=== PATIENT | male | born 1935 | race Caucasian/White ===

== ENCOUNTER 2018-02-15 17:29 | Inpatient (IN) | payer MEDICARE ==
[~2018-02-15 17:29] MED LIST: Iopamidol 370 76% 100 ML VIAL ONE
[2018-02-15 18:22] LABS: #Eosinphils 0.8 thou/uL (0.0-0.7); #Lymphocytes 0.8 thou/uL (1.20-3.40); #Monocytes 0.6 thou/uL (0.11-0.59); #Neutrophils 5.9 thou/uL (1.40-6.50); %Basophils 0.3 % (0.0-1.0); %Lymphocytes 9.9 % (21.0-51.0); %Monocytes 7.4 % (0.0-10.0); %Neutrophils 72.4 % (42.0-75.0); Hemoglobin 13.5 g/dL (14.0-18.0); Mean Corpuscular HGB CONC 32.9 g/dL (32.0-36.0); Mean Corpuscular Hemoglobin 29.5 pg (27.0-31.0); Mean Corpuscular Volume 89.7 fL (78.0-98.0); Mean Platelet Volume 8.5 fL (7.4-10.4); Platelet Count 154 thou/uL (130-400); RBC Distribution Width 13.3 % (11.5-14.5); Red Blood Cell (RBC) Count 4.59 mill/uL (4.70-6.10); White Blood Cell (WBC) Count 8.2 thou/uL (4.8-10.8)
[2018-02-15 18:30] LABS: INR-International Normal Ratio 1.1; PTT 27.4 SEC (22.9-36.1); Prothrombin Time 14.1 SEC (12.0-14.7)
[2018-02-15 18:44] LABS: ALT (SGPT) 15 U/L (8-55); AST (SGOT) 27 U/L (5-34); Albumin 3.8 g/dL (3.4-4.8); Alkaline Phosphatase 76 U/L (40-150); Anion Gap 12 mmol/L (10-20); BUN (Urea Nitrogen) 21 mg/dL (8.4-25.7); Bilirubin, Total 0.4 mg/dL (0.2-1.2); Calc. Creatinine Clearance 0 mL/min (70-130); Calcium 9.4 mg/dL (7.8-10.44); Carbon Dioxide 27 mmol/L (23-31); Chloride 102 mmol/L (98-107); Estimated GFR-MDRD 61; Globulin 3.4 g/dL (2.4-3.5); Glucose 124 mg/dL (83-110); Lipase 10 U/L (8-78); Potassium 4.7 mmol/L (3.5-5.1); Protein, Total 7.2 g/dL (5.8-8.1); Sodium 136 mmol/L (136-145)
--- NOTE | 2018-02-15 20:35 | CT ---
ABDOMEN AND PELVIS CT SCAN WITH IV CONTRAST: HISTORY: An 83-year-old male with a history of rectal bleeding, a history of Julio's esophagus, and colonic polyps. COMPARISON: 11/19/2016 FINDINGS: Left hemidiaphragm elevation with some pleural and parenchymal changes in the left base. Evidence fo r a large, somewhat poorly circumscribed, bilobed-shaped mass involving the left upper quadrant, incl uding the medial aspect of the spleen and extending to and possibly invading the stomach. This mass measures 7.7 x 9.4 x 6.8 cm. It does not appear to involve the pancreas, the left adrenal gland, or the left kidney. Stable right renal fatty tumor. Probable cholelithiasis. A 2.8 cm in diameter, so lid, somewhat bull's eye appearing mass in the right lobe of the liver, adjacent to the gallbladder, worrisome for metastasis. Stable 3.1 cm cyst within the robe hepatis, possibly liver cyst or possib ly choledochal cyst. Small renal hypodensities bilaterally. Small, approximately 1 cm in diameter, probable solid mass off the lateral aspect of the right kidney, worrisome for a small renal cell carc inoma. Evidence for a large duodenal diverticulum. Extensive diverticulosis without acute diverticu litis. Numerous bladder diverticula. Fat-containing inguinal hernia. Fat-containing umbilical cintia ia with some stable appearing fat stranding from the prior study. Bilateral inguinal hernias, larger on the left side. IMPRESSION: 1. Very large, somewhat bilobed-shaped mass involving the left upper quadrant and involving the medi al aspect of the spleen and extending to the stomach, but does not appear to involve the pancreas or the kidney. 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 2. Right lobe of liver metastasis, adjacent to the gallbladder. 3. Cholelithiasis without overt cholecystitis. 4. Small cyst within the liver or robe hepatis, stable. 5. Approximately 1 cm in diameter, exophytic, small mass off the right renal cortex, worrisome for a small renal cell carcinoma, not seen on the prior study. 6. Umbilical and inguinal hernias. 7. Colonic diverticulosis without diverticulitis. 8. Numerous bladder diverticula. 9. Other findings as above, including intramuscular lipomas involving the left obturator externus mu scle, stable. POS: [facility]
[2018-02-15 22:04] LABS: Hemoglobin 13.9 g/dL (14.0-18.0)
[2018-02-15] MEDS ORDERED: Pantoprazole 40 MG VIAL ONE (22:10)
[2018-02-16 00:23] VITALS: BMI 29.4
[2018-02-16] MEDS ORDERED: Nitroglycerin 0.4 MG TAB (25 Tab Bottle) SL PRN (03:43)
[2018-02-16] MEDS ORDERED: hydrALAZINE 20 MG/ML VIAL SLOW IVP PRN (03:43)
[2018-02-16] MEDS ORDERED: Senokot S 8.6-50 MG TAB PO PRN (03:43)
[2018-02-16] MEDS ORDERED: HYDROcodone/Acetaminophen 5/325 mg Tablet PO PRN (03:43)
[2018-02-16] MEDS ORDERED: Acetaminophen 500 MG TAB PO PRN (03:43)
[2018-02-16] MEDS ORDERED: cloNIDine 0.1 MG TAB PO PRN (03:43)
[2018-02-16] MEDS ORDERED: Ondansetron PF 4 MG/2 ML Vial IVP PRN (03:43)
[2018-02-16] MEDS ORDERED: Sodium Chloride 0.65% Nasal 44 ML BOT EA NARE PRN (03:43)
[2018-02-16] MEDS ORDERED: Bisacodyl 5 MG TAB PO PRN (03:43)
[2018-02-16] MEDS ORDERED: Diabetic Tussin 200 MG/10 ML UDCUP PO PRN (03:43)
[2018-02-16] MEDS ORDERED: Benzonatate 100 MG CAP PO PRN (03:43)
[2018-02-16 04:05] LABS: Hemoglobin 12.2 g/dL (14.0-18.0)
[2018-02-16] MEDS ORDERED: Pantoprazole 40 MG VIAL IVP SCH (09:00)
[2018-02-16] MEDS ORDERED: Dextrose 5% in Water 1,000 ML IV PRN (11:01)
[2018-02-16] MEDS ORDERED: Dextrose 50% Abboject 50 ML SYRINGE SLOW IVP PRN (11:01)
[2018-02-16] MEDS ORDERED: HumaLOG 300 UNITS/3 ML VIAL SC PRN ×2 (11:01)
[2018-02-16] MEDS: Sodium Chloride 0.9% 1,000 ML IV SCH ×2 (13:15)
[2018-02-16] MEDS: Labetalol 100 MG TAB PO SCH ×2 (15:05→20:45)
[2018-02-16] MEDS ORDERED: Iopamidol 370 76% 100 ML VIAL ONE (17:08)
--- NOTE | 2018-02-16 19:08 | HP ---
PRIMARY CARE PROVIDER: Dr. Adler. CHIEF COMPLAINT: Blood per rectum. HISTORY OF PRESENT ILLNESS: This is an 83-year-old male, who presented to [facility] Emergency Department complaining of sudden onset of rectal bleeding. 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 The patient denied any specific warning and states this occurred spontaneously. The patient denied any specific abdominal pain, recent trauma, injury, aspirin or anticoagulation use. The patient states he had a similar bleeding episode approximately a year prior to this evaluation, undergoing colonoscopy exam on 11/20/2016. The patient was diagnosed with a likely diverticular source. The patient was managed conservatively during this exam and states he had no recurrent symptoms until presentation on 02/15/2018. The patient denied any specific weight loss and actually admits to weight gain over the last couple of months. The patient also relates that he is currently being evaluated at [facility] in [place] for potential abdominal mass or tumor suspicious for cancer. The patient states that he was undergoing his regular cardiac evaluation due to the fact that he is status post cardiac transplant approximately 18 years. The patient was receiving his annual evaluation when a scan showed an apparent tumor in the splenic region with questionable metastatic lesion in the liver. The patient states this was within the last 2 weeks prior to this evaluation and is scheduled for a followup in the [place] area in March. The patient states that he has been compliant with his chronic medication regimen and continues on immunosuppressive therapy as well as steroids, which were recently decreased in dose. The patient denied any specific nausea, vomiting, diarrhea, or difficulty with urination. The patient denied any hemoptysis or hematuria. The patient did not take any specific medication and presented to the emergency room for evaluation. In the emergency room, the patient underwent CT of the abdomen and pelvis showing a bilobed mass in the left upper quadrant in the medial aspect of the spleen extending to the stomach. The patient was also noted with an apparent metastatic liver lesion and a 1 cm exophytic mass on the right renal cortex. The patient received IV Protonix and was referred to the Medical Oncology Floor. PAST MEDICAL HISTORY: 1. Chronic immunosuppressive therapy. 2. History of colon polyps. 3. Julio's esophagus. 4. History of gross hematuria. 5. Cataracts. 6. Diabetes mellitus type 2, insulin requiring. 7. History of renal lithiasis. 8. Benign prostatic hypertrophy. 9. Hyperlipidemia. 10. Osteoarthritis. PAST SURGICAL HISTORY: 1. Status post cardiac transplant in 2000. 2. Status post colonoscopy. 3. Status post cardiac catheterization. CURRENT MEDICATIONS: 1. Amlodipine 10 mg 1 tab p.o. daily. 2. Clonidine 0.1 mg b.i.d. 3. Calcium carbonate 600 mg p.o. b.i.d. 4. Labetalol 300 mg p.o. b.i.d. 5. Losartan 50 mg p.o. daily. 6. Omeprazole 20 mg p.o. daily. 7. Potassium citrate 10 mEq 2 tablets p.o. b.i.d. 8. Pravachol 10 mg p.o. daily. ALLERGIES: NO KNOWN DRUG ALLERGIES. FAMILY HISTORY: Positive for coronary artery disease on paternal side. SOCIAL HISTORY: The patient resides in the [place], [place] area. The patient is accompanied by his daughter in the hospital. . No current alcohol, tobacco, or illicit drug use. Functional of all activities of daily living. Originally from [place], moving to the [place] [facility] and [place] in the last year. REVIEW OF SYSTEMS: CONSTITUTIONAL: Negative for weight loss or gain, ability to conduct usual activities. SKIN: Negative for rash, itching. EYES: Negative for double vision, pain. ENT/MOUTH: Negative for nose bleeding, neck stiffness, pain, tenderness. CARDIOVASCULAR: Negative for palpitations, dyspnea on exertion, orthopnea. RESPIRATORY: Negative for shortness of breath, wheezing, cough, hemoptysis, fever or night sweats. GASTROINTESTINAL: Negative for poor appetite, abdominal pain, heartburn, nausea, vomiting, constipation, or diarrhea. GENITOURINARY: Negative for urgency, frequency, dysuria, nocturia. MUSCULOSKELETAL: Negative for pain, swelling. NEUROLOGIC/PSYCHIATRIC: Negative for anxiety, depression. ALLERGY/IMMUNOLOGIC: Negative for skin rash, bleeding tendency. Otherwise, negative except as stated per HPI. PHYSICAL EXAMINATION: VITAL SIGNS: Currently, blood pressure 136/76, pulse 78, respiratory rate 18, temperature 97.9 degrees Fahrenheit, and O2 saturation 94% on room air. GENERAL APPEARANCE: This is an 83-year-old male, alert, and oriented x3, pleasant, conversant, smiling, in no acute distress. HEENT: Pupils are equal, round, reactive to light and accommodation. Extraocular muscles are intact. No scleral icterus. No conjunctival injection. Nares patent. OP is clear. Teeth in good repair. NECK: Supple. No cervical adenopathy. No thyromegaly. No carotid bruits. No JVD appreciated. Cervical spine with full active and passive range of motion. No meningeal signs noted. CHEST: Lungs are clear to auscultation bilaterally. CARDIOVASCULAR: S1 and S2 without noted murmur, rub, or gallop. ABDOMEN: Protuberant. No palpable mass. No rebound or guarding noted. No tenderness to palpation. Bowel sounds are positive in all 4 quadrants. EXTREMITIES: Warm and dry with fair turgor. Minimal edema to the left lower extremity. Pulses palpable distally at the dorsalis pedis, posterior tibial, and popliteal arteries bilaterally. Capillary refill less than 2 seconds. NEUROLOGIC: Cranial nerves 2 through 12 are grossly intact. No focal or lateralizing signs appreciated. PERTINENT LAB AND X-RAY FINDINGS: Creatinine 1.15, estimated GFR of 61, calcium 9.4. LFTs within normal limits. Lipase 10. CBC showed a hemoglobin ranging between 12.2 and 13.9, MCV 90. PT 14.1, INR 1.1, and PTT 27.4. Stool Hemoccult positive x1 on 02/15/2018. CT of the abdomen and pelvis dated 02/15/2018 showed large bilobed shaped mass of the left upper quadrant involving the medial aspect of the spleen extending to the stomach, right lobe of liver metastatic process. 1 cm exophytic mass of the right renal cortex. Please see dictated report for full details. ASSESSMENT AND PLAN: 1. Hematochezia. The patient will be admitted to the Medical Oncology Unit. Exact source and etiology unclear, potentially diverticular source. We will consult GI Service for evaluation. Avoid all anticoagulation and NSAIDs. Continue Protonix 40 mg IV q.12 hours. Continue intravenous normal saline at 70 mL/h. 2. Splenic mass. The patient will be evaluated by the GI Service. Consider Medical Oncology consult. No history of previous biopsy noted. Obtain previous records from [facility] in [place], [place]. 3. Hepatic mass, suspect metastatic process; however, no specific biopsy has been obtained. See #2 above. 4. Chronic immunosuppression. We will obtain the patient's home immunosuppressive therapy. 5. Acute blood loss anemia. Suspect secondary to #1. We will continue serial H and H monitoring, and repeat CBC in the a.m. 6. Diabetes mellitus type 2, insulin requiring. Resume home insulin regimen. Serial Accu-Cheks a.c. and at bedtime. Insulin sliding scale for reflexive coverage. 7. Prophylaxis. SCDs while in bed. Protonix 40 mg IV q.12 hours. 8. Code status is full. Surrogate medical decision maker is the patient's daughter. Job ID: [id number]
--- NOTE | 2018-02-16 20:36 | CT ---
CT OF THE CHEST WITH CONTRAST: 02/16/18 COMPARISON: CT abdomen/pelvis 02/15/18. HISTORY: History of skin cancers. Metastatic cancer seen in the liver and spleen on prior CT. Evaluate for met astatic lesions in the chest. TECHNIQUE: Multiple contiguous axial images were obtained in a CT of the chest with contrast. Coronal reformats were performed. FINDINGS: The heart is normal in size without focal cardiac abnormalities. No hilar or mediastinal lymphadenopa thy are seen. The patient is status post CABG. There is a mass in the upper mediastinum. This represe nts an enlarged right thyroid lobe with a large thyroid nodule extending into the superior mediastinu m. This nodule measures 6.1 cm in size. No axillary adenopathy is seen. No pneumothorax or pleural effusion is seen. Atelectasis is seen in t he left lung base. Please see dedicated abdominal CT from yesterday for findings below the diaphragm. Degenerative changes are seen in the spine. No suspicious osseous lesions are identified. IMPRESSION: Large right thyroid nodule. A thyroid ultrasound is recommended for further evaluation. POS: [facility]
[2018-02-16] MEDS: Pravastatin Sodium 20 MG TAB PO SCH (20:43)
[2018-02-16] MEDS: Amlodipine 5 MG TAB PO SCH (20:43)
[2018-02-16] MEDS: Tacrolimus 1 MG CAP PO SCH (20:44)
[2018-02-16] MEDS: Mycophenolate 250 MG CAP PO SCH (20:44)
[2018-02-16] MEDS: Magnesium Oxide 400 MG TAB PO SCH (20:45)
[2018-02-16] MEDS: Calcium Carbonate + Vit D 1 TAB PO SCH (20:48)
[2018-02-16] MEDS: Insulin Glargine 15 UNITS in Pre-Filled Syringe 1 EACH SC SCH (20:54)
[2018-02-16] MEDS ORDERED: Magnesium Oxide 400 MG TAB PO SCH (21:00)
--- NOTE | 2018-02-17 00:47 | CON ---
DATE OF CONSULTATION: REASON FOR CONSULTATION: GI bleed. HISTORY OF PRESENT ILLNESS: Mr. Berman is an 83-year-old gentleman, who has had previous evaluation in this facility for lower GI bleeding, which has been deemed to be diverticular and felt to be lower diverticular. He had EGD and colonoscopy in 2016, when he presented with bleeding. At that time, it was bright red painless bleeding. He had an upper endoscopy that was normal, then a colonoscopy that was normal except for diverticulosis, formed stool in the descending colon, and bright red blood in the rectum. Ultimately, he received 1 unit of blood during that hospitalization. He re-presented with lower GI bleeding in 11/2016 and had a colonoscopy that was normal except for diminutive polyp that was not removed. On this episode, he states that yesterday he had a couple of stools that were uncontrolled or bright red blood. The stool that even came out after that was little bit darker, something about 2 or 3 times. He had no associated syncope episodes, nausea, vomiting, or abdominal pain. His hemoglobin here on admission was 13.5, now is 12.2. He has had no further bleeding since admission. In talking with the patient, he also notes a mass that had recently been found on his spleen and liver and possibly kidney. This was in [place] with Dr. Lucero, his heart transplant surgeon at [facility]. They had him to get apparently an upper endoscopy after this mass was found in the spleen, that the patient's daughter reports this was normal that was done at [facility] as well. There were some questionable lesions in his neck area and biopsies were taken possibly of the thyroid or parathyroid in [place]. The patient's daughter notes that these were somewhat negative and somewhat nonconclusive. There has apparently been no biopsy of either liver lesions, the renal lesion or the spleen lesion. In talking with the patient and the daughter, he has had fatigue. He has had no overt weight loss. His appetite has been good. He denies any fever, chills, sweats, or rigors. Presently, the patient is without complaints of cough or shortness of breath. PAST MEDICAL HISTORY: 1. Cardiac transplant in 2000 secondary to congestive heart failure. 2. Diabetes. 3. Kidney stones. 4. Hypertension. 5. 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 6. Julio esophagus. PAST SURGICAL HISTORY: 1. Heart transplant in 2000. 2. EGD and colonoscopy in 2016 and colonoscopy in 2017 when he got bleeding. 3. TURP. 4. Cataract surgery. REVIEW OF SYSTEMS: Otherwise negative allergies, heme, lymphatic, neuro, skin, musculoskeletal, , respiratory, cardiovascular, ENT. SOCIAL HISTORY: The patient is a former smoker. He stopped about 10 years ago. ALLERGIES: NONE KNOWN. MEDICATIONS: 1. Amlodipine. 2. Clonidine. 3. Calcium. 4. Labetalol. 5. Losartan. 6. Omeprazole. 7. Potassium citrate. 8. Pravastatin. 9. Tacrolimus one at bedtime, two in the morning. 10. Fosamax. 11. Iron. 12. CellCept 1000 mg b.i.d. 13. Insulin sliding scale. 14. Magnesium. 15. Proscar. Present medications: 1. Tylenol. 2. Bisacodyl. 3. Clonidine. 4. Dextrose. 5. Proscar. 6. Glucagon. 7. . 8. Hydralazine. 9. insulin. 10. Labetalol. 11. Losartan. 12. Magnesium. 13. Nitroglycerin. 14. Zofran. 15. Protonix. PHYSICAL EXAMINATION: VITAL SIGNS: Temperature is 97, pulse 78, and blood pressure is 148/76. He is resting comfortably in bed. HEENT: Conjunctivae clear. Sclerae not jaundiced or icterus. Oropharynx without lesions or ulcers. NECK: Supple. No adenopathy. There is no evidence of adenopathy in the supraclavicular areas, axillary, inguinal areas, or groin. LUNGS: Clear. HEART: Regular rate and rhythm. ABDOMEN: Soft and nontender. There is no palpable hepatosplenomegaly. EXTREMITIES: No clubbing, cyanosis, or edema. SKIN: Without rash or lesions. LABORATORY STUDIES: Hemoglobin is 12.2 today, it was 13.5 last night at 1807 hours; white count 8.2; and platelet count 154. INR 1.2. Comprehensive metabolic profile is normal. Lipase 10. ASSESSMENT: 1. Lower gastrointestinal bleeding, this is likely diverticular, has been thoroughly investigated in the past. This is self-limited and there is no bleeding now. I would not plan on repeat endoscopies. He can start a liquid diet. 2. Cardiac transplant. He needs to be started on his anti-rejection medications. We would defer this to Internal Medicine. 3. He has a mass in his spleen that is 8 cm in size. In retrospect, it was probably there last year and it was just in the very tip of the spleen. This seems to be abutting the stomach, but not invading it. The patient's daughter relates he had an EGD in [place] 2 months ago. This was after the CAT scan and their recollection is that was a normal study. In addition to this mass, he has two lesions in the liver, one felt to be a solid mass, which is a metastatic disease near the gallbladder. There is a cystic lesion and then there was commentary on a third mass involving the right renal cortex 1 cm worrisome for renal cell carcinoma and was apparently not seen on previous study. There is some cyst in the liver, which is stable. There is also gallstone disease, which is stable. He has umbilical and inguinal hernias as well on that imaging study and a lipoma in the left obturator externus muscle. My concern is that he could have lymphoma based on his immunosuppression since 2000 for heart transplant. Otherwise, no B symptoms. 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 PLAN: 1. Anti-rejection medicines per Internal Medicine. 2. Liquid diet. H and H daily. If the patient has acute hemorrhage, we will get a tagged scan. We would not repeat endoscopies including upper as he has had one, two months ago. 3. With regard to the masses, I think he needs Oncology consult and we determine if we can get a needle biopsy to diagnose lymphoma or whether he is going to need some type of excisional biopsy with General Surgery. I see no role for repeating his EGD as this has just been done to look to see if the stomach was involved and it does not appear to be on the imaging and it does not appear that anything was found in the stomach on the endoscopy. I talked with the patient's daughter. We will request those records from [place]. Job ID: [id number]
--- NOTE | 2018-02-17 01:47 | CON ---
DATE OF CONSULTATION: REASON FOR CONSULTATION: Likely metastatic cancer. HISTORY OF PRESENT ILLNESS: An 83-year-old male with history of heart transplant in 2000 and long-term tobacco abuse, presenting to the hospital with acute rectal bleeding x1 episode yesterday. The patient states he was working at his desk and stood up and a lot of blood just came out. He was not having any bowel movements, and denies any diarrhea or constipation currently. No nausea, vomiting, or fevers. He states he had a similar episode in November of 2016 and states he had a colonoscopy at that time that did not reveal anything. The patient states he was seen in [place] a month and a half to 2 months ago and had multiple biopsies done of his thyroid gland and possibly his stomach, but he is not sure. He says he was never told that any of these biopsies revealed any cancer. Upon admission to the hospital, the patient's hemoglobin was 13.4 and it is currently 12.2. He denies anymore bleeding since admission to the hospital. The patient's vital signs were stable. The patient was evaluated by Gastroenterology and is being planned for a colonoscopy tomorrow. CT of the abdomen and pelvis with contrast on admission to the hospital showed a very large 7.7 x 9.4 x 6.8 cm bilobed shaped mass involving the left upper quadrant and involving the medial aspect of the spleen and extending to the stomach. There is also a 2.8 cm solid bullseye-appearing mass in the right lobe of the liver, and a 1 cm exophytic small mass of the right renal cortex. The patient is a former smoker of three packs per day times at least 40 years and quit approximately 20 years ago. His father had a history of throat cancer and was also a heavy smoker. No other family history of cancer. The patient rarely drinks any alcohol. REVIEW OF SYSTEMS: Ten-point review of systems negative except as per HPI. PAST MEDICAL HISTORY: Tobacco abuse, heart transplant, BPH, hypertension. PAST SURGICAL HISTORY: Heart transplant in 2000. SOCIAL HISTORY: Rare alcohol. Tobacco abuse. Smokes cigarette three packs per day times at least 40 years and quit 20 years ago. FAMILY HISTORY: Throat cancer in father. ALLERGIES: NO KNOWN DRUG ALLERGIES. CURRENT MEDICATIONS: Reviewed. PHYSICAL EXAMINATION: VITAL SIGNS: Temperature 97.6, pulse 78, respirations 17, saturating 94% on room air, blood pressure 147/78. GENERAL APPEARANCE: The patient lying in bed, in no acute distress, and appears comfortable. HEENT: Normocephalic and atraumatic. NECK: No thyromegaly. No lymphadenopathy in the neck. CARDIOVASCULAR: S1 and S2. Regular rate and rhythm. RESPIRATION: Clear to auscultation bilaterally without wheezes, rales, or rhonchi. ABDOMEN: Soft, nondistended, and nontender. EXTREMITIES: No peripheral edema. NEUROLOGIC: Cranial nerves 2 through 12 are grossly intact. LYMPHATICS: No palpable lymphoadenopathy in cervical, inguinal, or axillary chains. PSYCHIATRIC: Awake, alert, and oriented x3. LABORATORY DATA: White blood cells 8.2, hemoglobin 13.5 on admission and down to 12.2, platelets 154. Sodium 136, potassium 4.7, BUN 21, creatinine 1.15. IMAGING DATA: CT of the abdomen and pelvis with contrast dated February 15, 2018, shows a very large somewhat bilobed shaped mass involving the left upper quadrant and involving the medial aspect of the spleen and extending into the stomach, but does not appear to involve the pancreas or kidney. Right lobe of liver metastases adjacent to the gallbladder 2.8cm in greatest diameter, and approximately 1 cm in diameter exophytic small mass of the right renal cortex, worrisome for a small renal cell carcinoma. Also, there are umbilical and inguinal hernias and colonic diverticulosis without diverticulitis with numerous bladder diverticula and cholelithiasis without cholecystitis. Also seen is a small cyst in the liver, which is stable based on prior imaging. ASSESSMENT AND PLAN: An 83-year-old male with history of heart transplant in 2000 and at least a [id number] smoking history and quit 20 years ago, presenting with acute rectal bleeding x1 episode yesterday and subsequently found to have a large left upper quadrant mass, small liver mass, and renal mass on CT scans. The patient is being planned for colonoscopy tomorrow, and if nothing suspicious was seen, we will proceed with needle biopsy of left upper quadrant mass or his liver mass. The patient does state that he received multiple biopsies on an endoscopy, upper GI, recently in [place], and his daughters are bringing his records today. The renal lesion may be better evaluated by Urology, and if this is felt to be a renal cell carcinoma, the patient can benefit from a partial nephrectomy or ablation due to small size, which would be a T1 lesion. We will continue to follow this patient with you. Thank you for this consult. Job ID: [id number]
[2018-02-17] MEDS: Sodium Chloride 0.9% 1,000 ML IV SCH ×2 (04:17→21:05)
[2018-02-17 06:25] LABS: ALT (SGPT) 11 U/L (8-55); AST (SGOT) 19 U/L (5-34); Albumin 3.7 g/dL (3.4-4.8); Alkaline Phosphatase 77 U/L (40-150); Anion Gap 12 mmol/L (10-20); BUN (Urea Nitrogen) 11 mg/dL (8.4-25.7); Bilirubin, Total 0.7 mg/dL (0.2-1.2); Calc. Creatinine Clearance 83 mL/min (70-130); Calcium 8.9 mg/dL (7.8-10.44); Carbon Dioxide 25 mmol/L (23-31); Chloride 105 mmol/L (98-107); Estimated GFR-MDRD 87; Glucose 97 mg/dL (83-110); Potassium 3.9 mmol/L (3.5-5.1); Protein, Total 6.7 g/dL (5.8-8.1); Sodium 138 mmol/L (136-145)
[2018-02-17 06:27] LABS: Band 2 % (5-11); Eosinophils 5 % (0-10); Lymphocytes 12 % (21-51); MDiff Complete? YES; Mean Corpuscular HGB CONC 32.5 g/dL (32.0-36.0); Mean Corpuscular Hemoglobin 29.1 pg (27.0-31.0); Mean Corpuscular Volume 89.5 fL (78.0-98.0); Mean Platelet Volume 8.2 fL (7.4-10.4); Monocytes 6 % (0-10); Neutrophil 74 % (42-75); Platelet Count 156 thou/uL (130-400); RBC Distribution Width 13.4 % (11.5-14.5); Red Blood Cell (RBC) Count 4.48 mill/uL (4.70-6.10); White Blood Cell (WBC) Count 6.5 thou/uL (4.8-10.8)
[2018-02-17] MEDS: Labetalol 100 MG TAB PO SCH ×3 (08:26→20:37)
[2018-02-17] MEDS: Tacrolimus 1 MG CAP PO SCH ×2 (08:26→20:30)
[2018-02-17] MEDS: Calcium Carbonate + Vit D 1 TAB PO SCH ×2 (08:26→20:34)
[2018-02-17] MEDS: Magnesium Oxide 400 MG TAB PO SCH ×2 (08:27→20:34)
[2018-02-17] MEDS: Multivit, Therapeutic 1 TAB PO SCH (08:27)
[2018-02-17] MEDS: Fish Oil 1,000 MG CAP PO SCH (08:27)
[2018-02-17] MEDS: Ferrous Sulfate 325 MG TAB PO SCH (08:27)
[2018-02-17] MEDS: Finasteride 5 MG TAB PO SCH (08:27)
[2018-02-17] MEDS: Losartan 25 MG TAB PO SCH (08:34)
[2018-02-17] MEDS: Ascorbic Acid 500 mg Chewable Tablet PO SCH (08:49)
[2018-02-17] MEDS: Mycophenolate 250 MG CAP PO SCH ×2 (08:50→20:33)
[2018-02-17] MEDS ORDERED: Pantoprazole 40 MG VIAL IVP SCH (09:00)
[2018-02-17] MEDS ORDERED: Losartan 25 MG TAB PO SCH (09:00)
--- NOTE | 2018-02-17 11:02 | PDOC.PN ---
- Subjective Encounter Start Date: 02/17/18 Encounter Start Time: 10:50 Subjective: f/u for GI bleed likely diverticular source with stable Hgb. Feels ok -: overall with minimal bleeding since admit. No other complaints. - Objective MAR Reviewed: Yes Vital Signs & Weight: Vital Signs (12 hours) Pulse BP 02/17/18 08:26 76 143/75 H Weight Weight 193 lb 9.6 oz I&O: 02/16/18 02/17/18 02/18/18 06:59 06:59 06:59 Intake Total 420 2520 Balance 420 2520 Result Diagrams: 02/17/18 06:00 02/17/18 06:00 Additional Labs: Accuchecks 02/17/18 02/16/18 02/16/18 05:29 20:52 17:14 POC Glucose 90 157 H 123 H 02/16/18 11:37 POC Glucose 123 H Laboratory Tests 02/15/18 02/15/18 02/16/18 18:07 21:57 03:55 Hgb 13.5 L 13.9 L 12.2 L Radiology Reviewed by me: Yes (CT chest - Large R thyroid mass) Phys Exam - Physical Examination Constitutional: NAD HEENT: PERRLA, sclera anicteric, oral pharynx no lesions Neck: no JVD, supple, full ROM Respiratory: no wheezing, no rales, no rhonchi, clear to auscultation bilateral S1, S2 Cardiovascular: RRR, no significant murmur, no rub, gallop Gastrointestinal: soft, non-tender, no distention, positive bowel sounds Musculoskeletal: no edema, pulses present Neurological: normal sensation, moves all 4 limbs Psychiatric: A&O x 3 Skin: normal turgor, cap refill <2 seconds Dx/Plan (1) GI bleed Code(s): K92.2 - GASTROINTESTINAL HEMORRHAGE, UNSPECIFIED Status: Acute Qualifiers: GI bleed type/associated pathology: unspecified gastrointestinal hemorrhage type Qualified Code(s): K92.2 - Gastrointestinal hemorrhage, unspecified Comment: Likely diverticular source, serial H/H, avoid anticoag and ASA (2) Splenic mass Code(s): R16.1 - SPLENOMEGALY, NOT ELSEWHERE CLASSIFIED Status: Acute Comment: Plan for CT-guided bx today (3) Liver mass Code(s): R16.0 - HEPATOMEGALY, NOT ELSEWHERE CLASSIFIED Status: Acute Comment: CT-guided bx today (4) Acute blood loss anemia Code(s): D62 - ACUTE POSTHEMORRHAGIC ANEMIA Status: Acute Comment: No need for transfusion currently, serial H/H (5) Immunosuppression due to drug therapy Code(s): Z79.899 - OTHER RETIREMENT (CURRENT) DRUG THERAPY Status: Chronic Comment: Continue Cellcept and Prograf (6) Thyroid nodule Code(s): E04.1 - NONTOXIC SINGLE THYROID NODULE Status: Acute Comment: Previously biopsied at [facility] in [place], obtain medical records to review pathology - Plan plan discussed w/ family, social professionals, out of bed/ambulate, DVT proph w/SCDs Stable currently -: Plan for CT-guided biopsy of spleen/liver mass -: Await records from [facility] -: Appreciate Med Oncology and GI assistance -: AM lab: H/H with Plt * .
--- NOTE | 2018-02-17 13:56 | CT ---
CT GUIDED LIVER MASS BIOPSY: History: Liver mass. FINDINGS: After explaining the procedure and answering all questions, limited CT imaging of the abdomen was per formed. Sterile technique, buffered local anesthesia, CT guidance and a right anterolateral approach were used to carefully advance a 17 gauge Trocar needle through the hypoechoic mass in the inferior l iver adjacent to the gallbladder fossa. A total of three 18 gauge specimens were obtained and submitt ed to the pathologist for evaluation. Specimen adequacy confirmed. The needle was removed. Post proce dure imaging shows no evidence of complication. The patient tolerated the procedure well and was retu rned in unchanged condition. IMPRESSION: Technically successful CT guided biopsy liver mass. Pathology is pending. POS: JUANA
[2018-02-17] MEDS: Amlodipine 5 MG TAB PO SCH (20:31)
[2018-02-17] MEDS: Pravastatin Sodium 20 MG TAB PO SCH (20:32)
[2018-02-17] MEDS: Insulin Glargine 15 UNITS in Pre-Filled Syringe 1 EACH SC SCH ×2 (20:35→20:42)
--- NOTE | 2018-02-18 08:18 | PRG ---
DATE OF SERVICE: 02/17/2018 SUBJECTIVE: Mr. Berman has had no further bleeding today. OBJECTIVE: GENERAL: He is in no acute distress, awake and alert. VITAL SIGNS: Temperature is 98.4, pulse 79, and blood pressure 143/79. LUNGS: Clear to auscultation bilaterally. HEART: Regular rate and rhythm. ABDOMEN: Soft, nontender, and nondistended. Bowel sounds are present. EXTREMITIES: No lower extremities edema. LABORATORY DATA: Hemoglobin is 13.0 today. IMPRESSION: 1. Diverticular bleed. This episode was a mild bleed and his hemoglobin did not drop. He has had recurrent bleeds in the past and underwent colonoscopy, that were negative except for the distal diverticulosis. This will require no further intervention at this point. 2. Mass in the spleen and also possible masses in the liver and previous thyroid lesion. He underwent CT-guided biopsy of the liver mass today. Pathology is pending. RECOMMENDATIONS: 1. He is tolerating a solid diet. 2. We will await pathology regarding malignancy workup for the spleen and liver masses given his long history of immunosuppression for his prior heart transplant. 3. I will sign off for now. Please call if GI can be of assistance. Job ID: [id number]
[2018-02-18 08:23] VITALS: BP 138/69; TEMP 97.8
[2018-02-18] MEDS: Ascorbic Acid 500 mg Chewable Tablet PO SCH (09:48)
[2018-02-18] MEDS: Finasteride 5 MG TAB PO SCH (09:48)
[2018-02-18] MEDS: Fish Oil 1,000 MG CAP PO SCH (09:49)
[2018-02-18] MEDS: Labetalol 100 MG TAB PO SCH (09:49)
[2018-02-18] MEDS: Losartan 25 MG TAB PO SCH (09:49)
[2018-02-18] MEDS: Mycophenolate 250 MG CAP PO SCH (09:49)
[2018-02-18] MEDS: Calcium Carbonate + Vit D 1 TAB PO SCH (09:50)
[2018-02-18] MEDS: Magnesium Oxide 400 MG TAB PO SCH (09:50)
[2018-02-18] MEDS: Multivit, Therapeutic 1 TAB PO SCH (09:50)
[2018-02-18] MEDS: Tacrolimus 1 MG CAP PO SCH (09:50)
[2018-02-18] MEDS: Ferrous Sulfate 325 MG TAB PO SCH (09:50)
--- NOTE | 2018-02-19 07:48 | DIS ---
DATE OF ADMISSION: 02/15/2018 DATE OF DISCHARGE: 02/18/2018 DISCHARGE DIAGNOSES: 1. Gastrointestinal bleed secondary to diverticular source, stable. 2. Acute blood loss anemia, mild. No requirement for blood transfusion. 3. Splenic mass. 4. Liver mass, status post liver biopsy. Pathology pending. 5. Chronic immunosuppression. 6. Thyroid nodule. CONSULTATIONS: 1. Dr. Molina and Dr. Lloyd with GI Service. 2. Dr. Conrad Stevens with Medical Oncology Service. PERTINENT LAB AND X-RAY FINDINGS: Complete metabolic profile within normal limits. CBC showed a hemoglobin ranging between 12.2 to 13.5, platelet count ranged between 154 to 156. PT 14.1, INR 1.1, PTT 27.4. Stool Hemoccult positive x1, 02/15/2018. CT of the abdomen and pelvis dated 02/15/2018, showed bilobed mass involving the left upper quadrant on the medial aspect of the spleen extending to the stomach margin. Right lobe of liver, mass concerning for metastatic process. A 1 cm exophytic mass of the right renal cortex. Colonic diverticulosis without diverticulitis. CT of the chest dated 02/16/2018, showed large right thyroid nodule. HOSPITAL COURSE: The patient was admitted to the Medical Oncology Unit after presenting with blood per rectum. The patient presented with hematochezia, likely of diverticular source with previous colonoscopy performed on November 2016 and evaluated by the GI Service without specific recommendations for an acute intervention during this hospital stay. The patient's lower GI bleed spontaneously resolved without acute intervention, and serial hemoglobin remained stable throughout the hospital course. The patient did undergo evaluation after CT of the abdomen and pelvis revealed evidence of a splenic and liver mass concerning for malignant process. The patient underwent liver biopsy on 02/17/2018 with final pathology pending at the time of this dictation. The patient was evaluated by the Medical Oncology Service with recommendations for outpatient followup. Overall, the patient remained clinically stable during the hospital course, tolerating regular oral intake, ambulating without assistance or difficulty with stable vital signs. I have examined and discussed followup instructions with the patient at the time of discharge, who verbalized understanding and in agreement. The patient was ready for discharge on 02/18/2018. DISCHARGE MEDICATIONS: 1. Norvasc 5 mg p.o. at bedtime. 2. Vitamin C 1000 mg p.o. daily. 3. Calcium carbonate 500 mg p.o. b.i.d. 4. Clonidine 0.1 mg p.o. b.i.d. 5. Proscar 5 mg p.o. daily. 6. Lasix 40 mg p.o. b.i.d. p.r.n. 7. Prograf 1 mg p.o. at bedtime. 8. CellCept 1000 mg p.o. b.i.d. 9. Labetalol 300 mg p.o. b.i.d. 10. Losartan 50 mg p.o. daily. 11. Omeprazole 20 mg p.o. daily. 12. Potassium citrate 10 mEq two tablets p.o. b.i.d. 13. Pravachol 10 mg p.o. daily. FOLLOWUP: The patient will follow up with Dr. Adler within 7 days of discharge. The patient will follow up with Dr. Conrad Stevens with the Cancer [facility] and to call his office for appointment time and date. CONDITION ON DISCHARGE: Stable. ACTIVITY: Ad quincy. DIET: ADA. SPECIAL INSTRUCTIONS: Liver biopsy with pathology pending at the time of this dictation. CODE STATUS: Full. DISPOSITION: Home. Job ID: [id number]
== END 2018-02-18 11:55 | disposition home or self-care (01) | DRG 378 ==
LOC: ERS 17:29 → ONC 21:40
PROVIDERS: ADMIT Internal Medicine; ATTEND Internal Medicine
PROC: 0FB03ZX Excision of Liver, Percutaneous Approach, Diagnostic (ICD-10-PCS; principal; 2018-02-17)
DX: K92.1 Melena (principal); Z94.1 Heart transplant status; D62 Acute posthemorrhagic anemia; C78.7 Secondary malignant neoplasm of liver and intrahepatic bile duct; K57.91 Diverticulosis of intestine, part unspecified, without perforation or abscess with bleeding; E11.9 Type 2 diabetes mellitus without complications; R16.1 Splenomegaly, not elsewhere classified; N28.89 Other specified disorders of kidney and ureter; E04.1 Nontoxic single thyroid nodule; E78.5 Hyperlipidemia, unspecified; M19.90 Unspecified osteoarthritis, unspecified site; Z86.010 Personal history of colon polyps; Z85.828 Personal history of other malignant neoplasm of skin; Z87.442 Personal history of urinary calculi; Z87.891 Personal history of nicotine dependence; Z79.899 Other long term (current) drug therapy; Z79.4 Long term (current) use of insulin
CPT/HCPCS: 36415; 36416; 47000; 71260; 74177; 77002; 80053; 82274; 83690; 85007; 85014; 85018; 85025; 85027; 85610; 85730; 86850; 86900; 86901; 88307; 88333; 88334; 88341; 88342; 96374; C9113; G8978-GP-CK; G8979-GP-CK; G8980-GP-CK; G8987-GO-CI; G8988-GO-CI; G8989-GO-CI; J7507; J7517

== ENCOUNTER 2018-03-26 07:24 | Outpatient (CLI) | payer MEDICARE ==
--- NOTE | 2018-03-26 12:27 | PET ---
PET WITH CT SKULL TO MID THIGH: CLINICAL HISTORY: Stomach cancer. RADIOPHARMACEUTICAL: 10.9 mCi [id number] IV intermixed with 10 mL 0.9% sodium chloride. There is appropriate biodistribution of radiotracer activity. FINDINGS: Large soft tissue mass of the upper and right mediastinum corresponds to previously documented thyroi d mass. There is activity seen within the mass, although there is no hypermetabolic activity demonstr ated. SUV measures approximately 2.2. There is a markedly hypermetabolic mass of the left upper abdomen, as has been documented on precedin g CT exams. This corresponds to the posterior aspect of the proximal stomach and abuts the medial asp ect of the spleen. SUV maximum measures between 15 and 16. There is a right paraesophageal hypermetab olic metastatic lymph node adjacent to the distal esophagus with SUV maximum of 8.2. Patient's previo usly biopsied hepatic mass adjacent to the gallbladder does not reveal hypermetabolic activity, above background activity within the hepatic parenchyma. There is a moderately distended gallbladder with cholelithiasis. A moderate size left bladder diverticulum occupies the left pelvis. Extensive colonic diverticulosis is present. No hypermetabolic osseous lesions are evident. Air and fluid level of the right abdomen likely relates to duodenal diverticulum. There is a fat-containing periumbilical herni a with mild edema of the herniated fat. There is circumscribed fat density of the left pelvic floor m usculature, indicative of intramuscular lipomas. There is nonspecific ground-glass opacity of the posterior left lung apex. Scattered patchy densities of the lungs are also present, some of which are related to respiratory motion artifact and others c ould relate to atelectasis. IMPRESSION: 1. Markedly hypermetabolic large left upper quadrant mass arising from the posterior aspect of the s tomach. 2. There is metastatic hypermetabolic adenopathy of the right distal paraesophageal region. 3. Previously biopsied mass of the liver, adjacent to the gallbladder, is not hypermetabolic, not di scernably above background activity of hepatic parenchyma. 4. Large substernal thyroid goiter demonstrates metabolic activity, although is not frankly hypermet abolic. 5. Cholelithiasis with gallbladder distention. 6. Nonspecific patchy ground-glass opacity of posterior left apex, not hypermetabolic. Finding is no t reliably characterized on the basis of attenuation correction noncontrast CT imaging. Recommend ded icated CT thorax in 3 months to reevaluate. POS: JUANA
== END 2018-03-26 07:25 | disposition home or self-care (01) ==
LOC: PET 07:24
PROVIDERS: ATTEND Internal Medicine Hematology & Oncology
DX: C16.9 Malignant neoplasm of stomach, unspecified (principal); R19.02 Left upper quadrant abdominal swelling, mass and lump; R59.0 Localized enlarged lymph nodes; R16.0 Hepatomegaly, not elsewhere classified; E04.9 Nontoxic goiter, unspecified; K80.20 Calculus of gallbladder without cholecystitis without obstruction; K82.8 Other specified diseases of gallbladder; R91.8 Other nonspecific abnormal finding of lung field
CPT/HCPCS: 78815; A9552

== ENCOUNTER 2018-04-19 06:48 | Day surgery (SDC) | payer MEDICARE ==
[2018-04-16 14:54] VITALS: BMI 28.7
--- NOTE | 2018-04-19 09:51 | OP ---
DATE OF PROCEDURE: 04/19/2018 PROCEDURES PERFORMED: Esophagogastroduodenoscopy with biopsy and colonoscopy. PREOPERATIVE DIAGNOSES: Recent gastrointestinal bleed in February of 2018 and liver cancer of unknown primary. DESCRIPTION OF PROCEDURE: Informed consent was obtained from the patient. He was sedated with total intravenous anesthesia. The bite block was placed and the endoscope was advanced easily to the second portion of the duodenum, and retroflexion was performed in the stomach. The esophagus had a 4-cm segment of Julio esophagus with two tongues from 36 to 40 cm. Biopsies were obtained to rule out neoplastic changes; however, there was no nodularity or mass in the area. There was a hiatal hernia from 40 cm to 44 cm. The stomach had severe nonerosive gastritis in the antrum and body with patchy erythema throughout. Biopsies were obtained to rule out H pylori. Retroflexed views in the stomach were normal. The pylorus and first and second portions of the duodenum were normal. Air was suctioned from the stomach. The patient was turned around. Rectal exam was performed and was normal. The colonoscope was advanced to the terminal ileum without difficulty. The mucosa of the terminal ileum was normal. The ileocecal valve and appendiceal orifice were clearly identified. The preparation quality was good after significant irrigation. There was severe diverticulosis throughout the descending and sigmoid colon. The remainder of the colonic mucosa was normal. Retroflexed views in the rectum were normal. IMPRESSION: 1. Julio's esophagus, biopsied. 2. Hiatal hernia. 3. Nonerosive gastritis, biopsied to rule out Helicobacter pylori. 4. Otherwise normal esophagogastroduodenoscopy. No significant mass was seen. No nodularity to the segment of Julio's was seen. 5. Severe diverticulosis of the left colon. 6. Otherwise normal colonoscopy to the terminal ileum. RECOMMENDATIONS: 1. Await histopathology. 2. Follow up with Oncology. Job ID: [id number]
[2018-04-19] MEDS ORDERED: Lidocaine 1% PF 5 ML VIAL ONE (16:32)
[2018-04-19] MEDS ORDERED: PROPOFOL 200 MG/20 ML VIAL ONE (16:32)
== END 2018-04-19 10:25 | disposition home or self-care (01) ==
LOC: SDC 06:48
PROVIDERS: ATTEND Internal Medicine Gastroenterology
PROC: 0DJD8ZZ Inspection of Lower Intestinal Tract, Via Natural or Artificial Opening Endoscopic (ICD-10-PCS; principal; 2018-04-19)
PROC: 0DB58ZX Excision of Esophagus, Via Natural or Artificial Opening Endoscopic, Diagnostic (ICD-10-PCS; 2018-04-19)
PROC: 0DB68ZX Excision of Stomach, Via Natural or Artificial Opening Endoscopic, Diagnostic (ICD-10-PCS; 2018-04-19)
DX: K29.50 Unspecified chronic gastritis without bleeding (principal); K22.70 Barrett's esophagus without dysplasia; K44.9 Diaphragmatic hernia without obstruction or gangrene; K57.30 Diverticulosis of large intestine without perforation or abscess without bleeding; E11.9 Type 2 diabetes mellitus without complications; C78.7 Secondary malignant neoplasm of liver and intrahepatic bile duct; Z94.1 Heart transplant status; Z79.4 Long term (current) use of insulin; Z79.899 Other long term (current) drug therapy
CPT/HCPCS: 36416; 88305; 88312; 88313; J2001; J2704

== ENCOUNTER 2018-07-15 07:52 | Outpatient (CLI) | payer MEDICARE ==
--- NOTE | 2018-07-15 10:21 | PET ---
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 The liver metastatic lesion reportedly underwent microwave ablation TECHNIQUE: PET scanning with CT attenuation correction was performed from the base of the brain to the proximal thighs following the intravenous administration of 11.6 millicuries [id number]. COMPARISON: Prior PET/CT dated March 26, [address] of the abdomen and pelvis dated February 15, 2018 and November 19, 2016 FINDINGS: Biodistribution:The biodistribution for the exam appears acceptable. Head and neck: There is appropriate background activity within the brain. No hypermetabolic lymphaden opathy or masses identified. Thorax: The large substernal goiter is unchanged with mild background metabolic activity. There is a new moderate left pleural effusion without associated hypermetabolic uptake. There is new compressive atelectasis within the left lower lobe versus pneumonia. The large hypermetabolic paraeso phageal lymph node is increased in size now measuring 4.2 cm in its greatest axial dimension with a peak SUV uptake of 12.5 to were previously it had a peak activity of 11.84. Abdomen and pelvis: There is expected background activity within the GI and systems.The large mass involving the posterior aspect of the proximal gastric body with extension into the spleen has increased in size now measuring 14.3 x 14.7 cm where previously it measured 11.5 x 9.9 cm. The peak S UV uptake associated with this lesion is 15.2 were previously it was 12.66. The known hepatic metastatic lesion within segment 6 of the right hepatic lobe that had undergone interval microwave ab lation demonstrates no metabolic uptake. The suspected caudate lobe cyst demonstrates no associated hypermetabolic activity and is stable in size. The gallbladder has been intervally removed. Right adr enal myelolipoma appears stable. No new hypermetabolic lymphadenopathy or ascites is present. 2 foci of radiotracer activity seen within the posterior aspect of the bladder likely related to excret ory activity. Again seen is a large bladder diverticulum. Osseous structures and skin: No hypermetabolic skin or osseous lesion is identified. IMPRESSION: Abnormal PET/CT 1. The large mass involving the posterior aspect of the stomach with extension into the spleen has in creased in size and hypermetabolic uptake suspicious for worsening malignancy. 2. Known right hepatic lobe metastatic lesion that has undergone interval microwave ablation demonstr ates no associated hypermetabolic uptake. 3. The large distal right paraesophageal lymph node is increased in size and hypermetabolic uptake co nsistent with worsening malignant lymphadenopathy 4. Interval development of a moderate left pleural effusion without associated hypermetabolic uptake and compressive atelectasis of the left lower lobe. A component of pneumonia within the left lower lobe cannot be entirely excluded.
== END 2018-07-15 07:53 | disposition home or self-care (01) ==
LOC: PET 07:52
PROVIDERS: ATTEND Internal Medicine Hematology & Oncology
DX: C85.97 Non-Hodgkin lymphoma, unspecified, spleen (principal); C16.9 Malignant neoplasm of stomach, unspecified; C78.7 Secondary malignant neoplasm of liver and intrahepatic bile duct; R19.00 Intra-abdominal and pelvic swelling, mass and lump, unspecified site; R16.1 Splenomegaly, not elsewhere classified; J90 Pleural effusion, not elsewhere classified; R59.0 Localized enlarged lymph nodes
CPT/HCPCS: 78815; A9552

== ENCOUNTER 2018-07-27 14:34 | Inpatient (IN) | payer MEDICARE ==
[2018-07-27] MEDS ORDERED: Acetaminophen 325 MG TAB PO PRN (16:45)
[2018-07-27] MEDS ORDERED: cloNIDine 0.1 MG TAB PO PRN ×2 (18:01→23:37)
[2018-07-27] MEDS ORDERED: Furosemide 40 MG TAB PO PRN (18:01)
[2018-07-27] MEDS: Sodium Chloride 0.45% 1,000 ML IV SCH (18:08)
[2018-07-27] MEDS: Pravastatin Sodium 20 MG TAB PO SCH (20:23)
[2018-07-27] MEDS: Tacrolimus 1 MG CAP PO SCH (20:23)
[2018-07-27] MEDS: cloNIDine 0.1 MG TAB PO SCH (20:23)
[2018-07-27] MEDS: metroNIDAZOLE 500 MG TAB PO SCH (20:24)
[2018-07-27] MEDS: Famotidine 20 MG TAB PO SCH (20:24)
[2018-07-27] MEDS: Labetalol 100 MG TAB PO SCH (20:24)
[2018-07-27] MEDS: Amlodipine 5 MG TAB PO SCH (20:25)
[2018-07-27] MEDS: Mycophenolate 250 MG CAP PO SCH (20:31)
[2018-07-27] MEDS ORDERED: HYDROcodone/Acetaminophen 5/325 mg Tablet PO SCH (21:00)
[2018-07-27] MEDS ORDERED: HumaLOG 300 UNITS/3 ML VIAL SC PRN (23:35)
[2018-07-27] MEDS ORDERED: Dextrose 5% in Water 1,000 ML IV PRN (23:35)
[2018-07-27] MEDS ORDERED: Dextrose 50% Abboject 50 ML SYRINGE SLOW IVP PRN (23:35)
[2018-07-27] MEDS ORDERED: HYDROcodone/Acetaminophen 5/325 mg Tablet PO PRN (23:36)
--- NOTE | 2018-07-28 01:23 | HP ---
CHIEF COMPLAINT: Hypercalcemia, direct admit from [facility]. HISTORY OF PRESENT ILLNESS: The patient is an 83-year-old male, who was admitted back in February 2018 with some rectal bleeding. At that time, the patient was ultimately diagnosed with abdominal lymphoma. He has been following with Dr. Stevens as an outpatient and apparently had an initial chemotherapy treatment this morning. The patient subsequently had his gallbladder out subsequent to the admission in February, had a cholecystectomy over a month ago. The patient's daughter reports that since that time, he has gone downhill. As far as his eating and his mental status, he has become significantly worse over the last 7 to 10 days. Today, in the Cancer Center, the patient was noted to be significantly hypercalcemic on his labs. With the altered mental status and some hallucinations, it was felt that the hypercalcemia might be contributory. Therefore, he was sent for hospitalization. Over there, the patient did receive IV fluids and IV Zometa. The patient has a history of a heart transplant and is on immunosuppressive drugs and therefore the goal is to try to avoid any additional steroids. PAST MEDICAL HISTORY: Notable for the history of the transplant in 2000 with chronic immunosuppression since that time. He has a history of colon polyps, Julio's esophagus, cataracts, diabetes mellitus, renal lithiasis, BPH, hyperlipidemia, osteoarthritis. PAST SURGICAL HISTORY: Cardiac transplant in 2000 and subsequent catheterizations. The patient also apparently had a "needle ablation" of liver lesion, presumably related to the lymphoma. FAMILY HISTORY: Notable for coronary artery disease on his father's side. SOCIAL HISTORY: The patient is accompanied with his daughter. She reports her several other siblings will be rotating through to help care for him. The patient is . He is a nonsmoker, nondrinker, nondrug user. He is a DNR. REVIEW OF SYSTEMS: The patient's daughter reports that he has had a very poor appetite and not eating much at all over the last week and a half. He has become generally profoundly weak. All other systems were reviewed and all pertinent positives and negatives noted above. ALLERGIES: NONE. CURRENT MEDICATIONS: 1. Amlodipine 5 mg at bedtime. 2. [place] p.r.n. 3. Flagyl 500 b.i.d. 4. Fosamax 70 mg weekly. 5. Vitamin C 1000 mg daily. 6. Proscar 5 mg daily. 7. Lasix 40 mg b.i.d. 8. Humalog sliding scale. 9. Lantus 15 units subcu q.p.m. 10. Krill oil 500 mg daily. 11. Cozaar 50 mg daily. 12. Labetalol 100 mg t.i.d. 13. Omeprazole 20 mg daily. 14. CellCept 1000 mg b.i.d. 15. Multivitamin 1 p.o. daily. 16. Pravachol 5 mg at bedtime. 17. Tacrolimus 1 mg at bedtime, 2 mg q.a.m. 18. Clonidine 1 p.o. b.i.d. and 1 IV p.r.n. for systolic greater than 150. PHYSICAL EXAMINATION: VITAL SIGNS: Temperature is 97.8, pulse 74, respirations 18, O2 saturation 95% on room air, BP is 138/69. GENERAL APPEARANCE: Age-appropriate male. He is in no distress. Awake, alert, oriented, pleasant, and cooperative. He is confused. HEENT: PERRL. No OP lesions. NECK: Supple and symmetric. HEART: Regular rate and rhythm without murmurs, gallops, or rubs. LUNGS: Clear to auscultation bilaterally with good chest wall expansion and air exchange. ABDOMEN: Soft, nontender, and nondistended. Positive bowel sounds. No masses. No organomegaly. EXTREMITIES: No cyanosis, clubbing, or edema. LABORATORY DATA: Sodium 141, potassium 4.2, chloride 102, CO2 is 32, BUN 32, creatinine 1.12, uric acid was 10.9, calcium 13.2, total bilirubin 0.5, AST 16, ALT 11, alkaline phosphatase 94, LDH 325, total protein 5.2, albumin 3.3. IMPRESSION AND PLAN: 1. Hypercalcemia, possibly symptomatic affecting the patient's appetite, mental status and delirium. The patient received IV fluids and Zometa in the Cancer Clinic. We will continue with the IV fluids and hold off Decadron given his history of the heart transplant. 2. Lymphoma. The patient's daughter says she feels like she is not comfortable that she fully understands the situation and prognosis, and admits that she has some lack of trust when it comes to healthcare providers in these situations. She says that she watched her sister go through diabetes and renal failure and slowly have amputation, after amputation being told each time that she would be fine subsequent and she is concerned that she is being told again that things will be fine if they simply take the next step as they go along. I am going to have palliative care come meet with the patient's family to see if they can help coordinate any information or bridge any gaps in their knowledge so that we can resolve that for her. 3. Elevated uric acid likely related to the tumor, potentially tumor lysis. Continue with hydration. 4. Diabetes mellitus. Continue with sliding scale insulin and Accu-Cheks. 5. Anorexia, dietary consult, dietary supplements. 6. History of heart transplant in 2000. This the daughter states that he has well outlived it. He was told at that time it would last 8 to 10 years and it has been 18. He appears to be functioning quite well from a cardiac perspective. We will continue with his antirejection medications. 7. Hypertension. Continue with the amlodipine and the Lasix. The patient needs to be flushed with fluids, but not volume overloaded. 8. Delirium likely secondary to the hypercalcemia. 9. With respect to lymphoma, we will formally place consult with Oncology. We will continue to follow. Job ID: [id number]
[2018-07-28] MEDS: Sodium Chloride 0.45% 1,000 ML IV SCH ×3 (03:37→23:36)
[2018-07-28 05:46] LABS: #Eosinphils 0.1 thou/uL (0.0-0.7); #Lymphocytes 0.3 thou/uL (1.20-3.40); #Monocytes 0.5 thou/uL (0.11-0.59); #Neutrophils 7.3 thou/uL (1.40-6.50); %Basophils 0.4 % (0.0-1.0); %Eosinophils 1.5 % (0.0-10.0); %Lymphocytes 3.2 % (21.0-51.0); %Monocytes 5.8 % (0.0-10.0); %Neutrophils 89.2 % (42.0-75.0); Hemoglobin 11.1 g/dL (14.0-18.0); Mean Corpuscular HGB CONC 31.5 g/dL (32.0-36.0); Mean Corpuscular Hemoglobin 27.1 pg (27.0-31.0); Mean Corpuscular Volume 85.9 fL (78.0-98.0); Mean Platelet Volume 10.6 fL (7.4-10.4); Platelet Count 92 thou/uL (130-400); RBC Distribution Width 15.7 % (11.5-14.5); Red Blood Cell (RBC) Count 4.09 mill/uL (4.70-6.10); White Blood Cell (WBC) Count 8.2 thou/uL (4.8-10.8)
[2018-07-28 05:58] LABS: ALT (SGPT) 9 U/L (8-55); AST (SGOT) 15 U/L (5-34); Albumin 2.9 g/dL (3.4-4.8); Anion Gap 9 mmol/L (10-20); BUN (Urea Nitrogen) 29 mg/dL (8.4-25.7); Bilirubin, Total 0.4 mg/dL (0.2-1.2); Calc. Creatinine Clearance 65 mL/min (70-130); Carbon Dioxide 32 mmol/L (23-31); Chloride 104 mmol/L (98-107); Estimated GFR-MDRD 76; Globulin 2.6 g/dL (2.4-3.5); Glucose 144 mg/dL (83-110); Potassium 3.9 mmol/L (3.5-5.1); Protein, Total 5.5 g/dL (5.8-8.1); Sodium 141 mmol/L (136-145)
[2018-07-28 06:02] LABS: Calcium 12.1 mg/dL (7.8-10.44)
[2018-07-28 06:04] LABS: Alkaline Phosphatase 83 U/L (40-150)
[2018-07-28] MEDS: Enoxaparin Sodium 40 MG/0.4 ML SYRINGE SC SCH (09:20)
[2018-07-28] MEDS: Mycophenolate 250 MG CAP PO SCH ×2 (09:25→21:43)
[2018-07-28] MEDS: Tacrolimus 1 MG CAP PO SCH ×2 (09:27→21:44)
[2018-07-28] MEDS: Labetalol 100 MG TAB PO SCH ×3 (09:27→21:43)
[2018-07-28] MEDS: Losartan 25 MG TAB PO SCH (09:29)
[2018-07-28] MEDS: Finasteride 5 MG TAB PO SCH (09:29)
[2018-07-28] MEDS: cloNIDine 0.1 MG TAB PO SCH ×2 (09:30→21:44)
[2018-07-28] MEDS: metroNIDAZOLE 500 MG TAB PO SCH ×2 (09:30→21:43)
[2018-07-28] MEDS: Ascorbic Acid 500 mg Chewable Tablet PO SCH (09:30)
[2018-07-28] MEDS: Multivit, Therapeutic 1 TAB PO SCH (09:31)
[2018-07-28] MEDS: Famotidine 20 MG TAB PO SCH (09:32)
--- NOTE | 2018-07-28 14:00 | PRG ---
DATE OF SERVICE: 07/28/2018 SUBJECTIVE: The patient is seen and examined at the bedside. He feels weak and tired. He is not even able to sit up in bed. He is confused. OBJECTIVE: VITAL SIGNS: Blood pressure is 141/88, pulse is 92, temperature is 97.5, respirations are 18, O2 saturation is 93% on room air. GENERAL: He looks tired and exhausted. HEENT: His head is atraumatic and normocephalic. His pupils are responding to light properly. Sclerae are nonicteric. Conjunctivae are palish. Oral mucosa is somewhat dry. NECK: Supple. LUNGS: Breath sounds diminished at both bases. HEART: S1 and S2 normal. No S3. No S4. ABDOMEN: Soft. No guarding. No masses. EXTREMITIES: No clubbing or cyanosis. There is 1+ peripheral edema similar bilateral on both lower extremities. NEUROLOGICAL: He is confused. He does not know where he is at, but he follows my commands. There are no any motor deficits. LABORATORY DATA: Labs showed white count of 8.2, hemoglobin is 11.1, hematocrit is 35.1, platelet count is 92,000. Sodium of 141, potassium 3.9, chloride 104, CO2 of 32, BUN 29, creatinine 0.95, glucose 144, calcium 12.1, total protein 5.5, albumin 2.9. IMPRESSION: 1. Hypercalcemia, which improved since yesterday. Apparently, yesterday the patient received Zometa, IV fluids, and diuretics. I will start him on routine diuretics since he did not get any today yet because it was ordered p.r.n. 2. Confusion, most likely related to his hypercalcemia. This should be getting better with his normalization of calcium level. 3. Diabetes mellitus. We will continue sliding scale. 4. Lymphoma. 5. Anorexia. 6. History of heart transplant in 2000. The patient is on anti-rejection medications on CellCept . PLAN: Going to continue IV hydration plus start him on routine twice a day Lasix and IV push. We will check his calcium level tomorrow. Since his thrombocytopenia is present, we are going to hold his Lovenox for now. Ensure, and he is do not resuscitate patient. Job ID: [id number]
[2018-07-28] MEDS: Furosemide 40 MG/4 ML VIAL SLOW IVP SCH (14:35)
[2018-07-28] MEDS ORDERED: Lorazepam 0.5 MG TAB PO PRN (20:27)
[2018-07-28] MEDS: Pravastatin Sodium 20 MG TAB PO SCH (21:42)
--- NOTE | 2018-07-28 21:42 | CON ---
DATE OF CONSULTATION: REASON FOR CONSULTATION: Hypercalcemia and lymphoma. 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 The patient was receiving rituximab when his labs came back showing a calcium of 13.2. The patient appeared very lethargic and confused and his daughter states that he had been hallucinating over the last day, not eating and feeling very fatigued. The patient is only able to communicate that he feels whipped and otherwise cannot provide any history. 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 Beltran in [place], [place]. The patient had stable vital signs in clinic and I gave him 1 L of normal saline and Zometa 4 mg IV and sent him to the hospital for direct admission to telemetry for monitoring and continued treatment of his hypercalcemia. His hypercalcemia is most likely secondary to both the dehydration and lymphoma. The patient also takes calcium supplements daily. REVIEW OF SYSTEMS: Ten-point review of systems negative except as per HPI. PAST MEDICAL HISTORY: Adenocarcinoma in liver, non-Hodgkin's lymphoma of the spleen, heart transplant in 2000, on chronic immunosuppression, diabetes, BPH, high cholesterol, and Julio's esophagus. PAST SURGICAL HISTORY: Cardiac transplant in 2000. Microwave ablation of liver lesion in 2018. FAMILY HISTORY: No family history of cancer. SOCIAL HISTORY: No smoking or drinking. CURRENT MEDICATIONS: Reviewed. ALLERGIES: NO KNOWN DRUG ALLERGIES. PHYSICAL EXAMINATION: VITAL SIGNS: Temperature 97.4, pulse 99, saturating 97% on room air, respirations 18, and blood pressure 140/83. GENERAL APPEARANCE: The patient is lying in bed, in no acute distress. HEENT: Normocephalic and atraumatic. NECK: Supple. HEART: S1, S2. Regular rate and rhythm. LUNGS: Clear to auscultation bilaterally. ABDOMEN: Soft, nondistended, and nontender. EXTREMITIES: No edema. NEUROLOGIC: Cranial nerves 2 through 12 are grossly intact. PSYCHIATRIC: Awake and alert ;however, he is not oriented and appears confused. LABORATORY DATA: White blood cells 8.2, hemoglobin 11.1, and platelets 92. Calcium 141, potassium 3.9, BUN 29, creatinine 0.95, calcium 13.2, currently 12.1, albumin 2.9. ASSESSMENT AND PLAN: An 83-year-old male with non-Hodgkin's lymphoma of the spleen and adenocarcinoma of liver, status post microwave ablation, who started treatment with rituximab today, was found to have hypercalcemia with calcium of 13.2, and corrected calcium of approximately 14. He is status post IV fluids and Zometa in the Cancer Clinic and corrected calcium is currently 12.1. The patient does appear slightly better; however, he is still confused and very weak. The patient's uric acid is also mildly elevated at 10.9 up from 8.3 three weeks prior and this may be partially due to spontaneous tumor lysis; however, he has no other signs of tumor lysis. He just started rituximab today. Recommend continuing fluids at this time and may continue Lasix as to avoid any fluid overload given his cardiac history. We will continue to monitor the patient for clinical improvement. If the patient does stay in the hospital for one week then I will give him rituximab next week. We will continue to follow along with you. Job ID: [id number]
[2018-07-28] MEDS: Amlodipine 5 MG TAB PO SCH (21:44)
[2018-07-29] MEDS: Lorazepam 2 MG/ML VIAL SLOW IVP PRN ×2 (00:11→21:10)
[2018-07-29] MEDS ORDERED: Lorazepam 2 MG/ML VIAL SLOW IVP SCH (04:00)
[2018-07-29] MEDS ORDERED: diphenhydrAMINE 50 MG/ML VIAL IVP SCH (04:00)
[2018-07-29 05:26] LABS: #Eosinphils 0.1 thou/uL (0.0-0.7); #Lymphocytes 0.4 thou/uL (1.20-3.40); #Monocytes 0.9 thou/uL (0.11-0.59); #Neutrophils 8.5 thou/uL (1.40-6.50); %Basophils 0.2 % (0.0-1.0); %Eosinophils 1.2 % (0.0-10.0); %Lymphocytes 4.1 % (21.0-51.0); %Monocytes 8.8 % (0.0-10.0); %Neutrophils 85.7 % (42.0-75.0); Hemoglobin 11.8 g/dL (14.0-18.0); Mean Corpuscular HGB CONC 31.4 g/dL (32.0-36.0); Mean Corpuscular Hemoglobin 26.9 pg (27.0-31.0); Mean Corpuscular Volume 85.8 fL (78.0-98.0); Mean Platelet Volume 10.3 fL (7.4-10.4); Platelet Count 94 thou/uL (130-400); RBC Distribution Width 15.5 % (11.5-14.5); Red Blood Cell (RBC) Count 4.37 mill/uL (4.70-6.10); White Blood Cell (WBC) Count 9.9 thou/uL (4.8-10.8)
[2018-07-29] MEDS: Furosemide 40 MG/4 ML VIAL SLOW IVP SCH ×2 (05:30→13:57)
[2018-07-29 05:35] VITALS: BMI 26.0
[2018-07-29 05:46] LABS: Anion Gap 13 mmol/L (10-20); BUN (Urea Nitrogen) 25 mg/dL (8.4-25.7); Calc. Creatinine Clearance 62 mL/min (70-130); Calcium 11.1 mg/dL (7.8-10.44); Carbon Dioxide 30 mmol/L (23-31); Chloride 100 mmol/L (98-107); Estimated GFR-MDRD 72; Glucose 141 mg/dL (83-110); Potassium 3.2 mmol/L (3.5-5.1); Sodium 140 mmol/L (136-145); Uric Acid 10.9 mg/dL (3.5-7.2)
[2018-07-29] MEDS: Tacrolimus 1 MG CAP PO SCH ×2 (09:50→21:15)
[2018-07-29] MEDS: cloNIDine 0.1 MG TAB PO SCH ×2 (10:55→21:16)
[2018-07-29] MEDS: Labetalol 100 MG TAB PO SCH ×3 (10:56→21:17)
[2018-07-29] MEDS: Losartan 25 MG TAB PO SCH (10:56)
[2018-07-29] MEDS: Mycophenolate 250 MG CAP PO SCH ×2 (10:57→21:15)
[2018-07-29] MEDS: Finasteride 5 MG TAB PO SCH (10:57)
[2018-07-29] MEDS: Ascorbic Acid 500 mg Chewable Tablet PO SCH (12:20)
[2018-07-29] MEDS: Multivit, Therapeutic 1 TAB PO SCH (12:20)
[2018-07-29] MEDS: metroNIDAZOLE 500 MG TAB PO SCH ×2 (12:21→21:14)
[2018-07-29] MEDS: Allopurinol 100 MG TAB PO SCH ×2 (13:54→21:16)
[2018-07-29] MEDS: Sodium Chloride 0.45% 1,000 ML IV SCH ×2 (14:03→21:16)
--- NOTE | 2018-07-29 14:08 | PRG ---
DATE OF SERVICE: 07/29/2018 SUBJECTIVE: The patient is seen and examined at bedside. Three family members are present in the room during my visit. Apparently, he was quite agitated last night and he was given a dose of Benadryl and he is sleeping a lot this morning. OBJECTIVE: VITAL SIGNS: Blood pressure is 141/92, pulse is a 90, respirations 22, O2 saturation is 94% on room air. His temperature is 97.8. GENERAL: He is in quite deep sleep during my visit since he was agitated last night. I am going to let him sleep. I am not going to wake him up for my evaluation. LUNGS: Clear. HEART: S1, S2 normal. No S3. No S4. ABDOMEN: The left part of the abdomen is somewhat distended to the left flank. Spleen is palpable, enlarged. Liver is not enlarged. Bowel sounds are present. EXTREMITIES: No clubbing, cyanosis, or edema. NEUROLOGICAL: Examination was postponed since he is sleeping at this time. LABORATORY DATA: Shows a white count of 9.9, hemoglobin 11.8, hematocrit 37.5, platelet count is 94,000. Chemistry showed sodium of 140, potassium 3.2, chloride 100, CO2 of 30, BUN 25, creatinine 0.99. Glycemia is ranging from 144 to 206, uric acid is 10.9, and calcium is 11.1. IMPRESSION: 1. Hypercalcemia, improving gradually with IV rehydration and IV Lasix. We will continue that regimen. 2. Confusion. We will follow up on this when he wakes up. 3. Agitation during night and treatment with Benadryl with subsequent comatose state. 4. Diabetes mellitus, relatively well controlled. 5. Anorexia. 6. Non-Hodgkin's lymphoma in the spleen. 7. Adenocarcinoma of the liver, status post microwave ablation. 8. History of heart transplant in 2000, on chronic immunosuppression. 9. Benign prostatic hyperplasia. 10. Hyperlipidemia. 11. History of Julio's esophagus. PLAN: Plan is to continue IV hydration with IV Lasix to decrease his hypercalcemia, it is improving daily. Now, he is anorexic, which is going on for quite some time. Apparently, he had some treatment for non-Hodgkin's lymphoma and there is a hope that this is going to affect in positive way his appetite. Also, we will continue current regimen. Job ID: [id number]
[2018-07-29 17:35] LABS: Bilirubin Negative (Negative); Blood, Urine Negative (Negative); Clarity CLEAR (Clear); Glucose, Urine (Dipstick) Negative (Negative); Leukocyte Negative (Negative); Nitrite Negative (Negative); Protein, Urine (Dipstick) Negative (Neg-Trace); Specific Gravity, Urine 1.007 (1.002-1.036); Urobilinogen 0.2 mg/dL (0.2-1.0)
[2018-07-29 17:39] LABS: Bacteria/HPF None Seen HPF (None Seen); Hyaline Casts/LPF 0-3 HYALINE CAST LPF (0-3 Hyaline); Pathc Cast-AUWi Flag 0.13 (0-2.49); RBC/HPF 0-3 HPF (0-3); Squamous Epithelial None Seen HPF (0-3); WBC/HPF None Seen HPF (0-3)
[2018-07-29 17:41] LABS: Urine Culture Reflex No No
[2018-07-29] MEDS: Pravastatin Sodium 20 MG TAB PO SCH (21:14)
[2018-07-29] MEDS: Amlodipine 5 MG TAB PO SCH (21:14)
[2018-07-30] MEDS ORDERED: Scopolamine 1.5 mg/72 hour Patch TD SCH (01:30)
[2018-07-30 04:50] LABS: #Eosinphils 0.1 thou/uL (0.0-0.7); #Lymphocytes 0.5 thou/uL (1.20-3.40); #Neutrophils 9.9 thou/uL (1.40-6.50); %Basophils 0.2 % (0.0-1.0); %Eosinophils 1.2 % (0.0-10.0); %Lymphocytes 4.6 % (21.0-51.0); %Monocytes 8.4 % (0.0-10.0); %Neutrophils 85.6 % (42.0-75.0); Hemoglobin 11.7 g/dL (14.0-18.0); Mean Corpuscular HGB CONC 31.5 g/dL (32.0-36.0); Mean Corpuscular Hemoglobin 26.9 pg (27.0-31.0); Mean Corpuscular Volume 85.5 fL (78.0-98.0); Platelet Count 100 thou/uL (130-400); RBC Distribution Width 15.4 % (11.5-14.5); Red Blood Cell (RBC) Count 4.36 mill/uL (4.70-6.10); White Blood Cell (WBC) Count 11.6 thou/uL (4.8-10.8)
[2018-07-30 05:02] LABS: Anion Gap 14 mmol/L (10-20); BUN (Urea Nitrogen) 29 mg/dL (8.4-25.7); Calc. Creatinine Clearance 62 mL/min (70-130); Calcium 10.2 mg/dL (7.8-10.44); Carbon Dioxide 28 mmol/L (23-31); Chloride 100 mmol/L (98-107); Estimated GFR-MDRD 71; Glucose 121 mg/dL (83-110); Potassium 3.2 mmol/L (3.5-5.1); Sodium 139 mmol/L (136-145); Uric Acid 12.5 mg/dL (3.5-7.2)
[2018-07-30] MEDS: Sodium Chloride 0.45% 1,000 ML IV SCH ×2 (05:51→15:16)
[2018-07-30] MEDS: Furosemide 40 MG/4 ML VIAL SLOW IVP SCH ×2 (05:52→15:15)
[2018-07-30 08:20] VITALS: BP 128/70; TEMP 97.2
[2018-07-30] MEDS: Ascorbic Acid 500 mg Chewable Tablet PO SCH (12:36)
[2018-07-30] MEDS: Allopurinol 100 MG TAB PO SCH (12:36)
[2018-07-30] MEDS: Enoxaparin Sodium 40 MG/0.4 ML SYRINGE SC SCH (12:37)
[2018-07-30] MEDS: cloNIDine 0.1 MG TAB PO SCH (12:37)
[2018-07-30] MEDS: Losartan 25 MG TAB PO SCH (12:38)
[2018-07-30] MEDS: Labetalol 100 MG TAB PO SCH ×2 (12:38→15:17)
[2018-07-30] MEDS: metroNIDAZOLE 500 MG TAB PO SCH (12:38)
[2018-07-30] MEDS: Finasteride 5 MG TAB PO SCH (12:38)
[2018-07-30] MEDS: Multivit, Therapeutic 1 TAB PO SCH (12:39)
[2018-07-30] MEDS: Mycophenolate 250 MG CAP PO SCH (12:39)
[2018-07-30] MEDS: Tacrolimus 1 MG CAP PO SCH (12:40)
--- NOTE | 2018-07-30 12:43 | PDOC.PN ---
- Subjective Encounter Start Date: 07/30/18 Encounter Start Time: 07:45 -: old records requested/rev pt is lethargic, does not follow command - Objective Resuscitation Status - Order Detail: 07/27/18 16:45 Resuscitation Status Routine Resuscitation Status: DNAR: NO Resuscitation Discussed with: Daughter YAO Reviewed: Yes Vital Signs & Weight: Vital Signs (12 hours) Temp Pulse Resp BP Pulse Ox 07/30/18 08:00 97.2 F L 94 18 128/70 96 Weight Admit Weight 172 lb Weight 171 lb 6 oz I&O: 07/29/18 07/30/18 07/31/18 06:59 06:59 06:59 Intake Total 3120 1850 Output Total 1000 1100 Balance 2120 750 Result Diagrams: 07/30/18 04:20 07/30/18 04:20 Additional Labs: Accuchecks 07/29/18 07/29/18 20:56 17:09 POC Glucose 125 H 140 H EKG Reviewed by me: Yes Phys Exam - Physical Examination Constitutional: NAD HEENT: PERRLA, sclera anicteric dry MM Neck: no JVD, supple Respiratory: no wheezing, no rales, no rhonchi Cardiovascular: RRR, no significant murmur, no rub Gastrointestinal: soft, no distention, positive bowel sounds Musculoskeletal: no edema, pulses present Lymphatic: no nodes Skin: no rash, normal turgor Dx/Plan (1) Acute metabolic encephalopathy Code(s): G93.41 - METABOLIC ENCEPHALOPATHY Status: Acute (2) Hypercalcemia Code(s): E83.52 - HYPERCALCEMIA Status: Acute (3) Hyperuricemia Code(s): E79.0 - HYPERURICEMIA W/O SIGNS OF INFLAM ARTHRIT AND TOPHACEOUS DIS Status: Acute (4) Thrombocytopenia Code(s): D69.6 - THROMBOCYTOPENIA, UNSPECIFIED Status: Acute (5) Adenocarcinoma of liver Code(s): C22.9 - MALIG NEOPLASM OF LIVER, NOT SPECIFIED PRIMARY OR SEC Status: Chronic (6) Anemia, normocytic normochromic Code(s): D64.9 - ANEMIA, UNSPECIFIED Status: Chronic (7) DM type 2 (diabetes mellitus, type 2) Status: Chronic Qualifiers: (8) H/O heart transplant Code(s): Z94.1 - HEART TRANSPLANT STATUS Status: Chronic Comment: (9) HTN (hypertension) Code(s): I10 - ESSENTIAL (PRIMARY) HYPERTENSION Status: Chronic Qualifiers: Comment: (10) Immunosuppression due to drug therapy Code(s): 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.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 Status: Chronic Comment: (11) Non-Hodgkin lymphoma, unspecified, spleen Code(s): C85.97 - NON-HODGKIN LYMPHOMA, UNSPECIFIED, SPLEEN Status: Chronic - Plan cont current plan of care, plan discussed w/ family, 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 Review of Systems - Review of Systems Other: unable to review due to encephalopathy - Medications/Allergies Allergies/Adverse Reactions: Allergies Allergy/AdvReac Type Severity Reaction Status Date / Time No Known Drug Allergies Allergy Verified 07/27/18 15:13 Medications: Current Medications Acetaminophen (Tylenol) 650 mg PO Q4H PRN PRN Reason: Headache/Fever/Mild Pain (1-3) Hydrocodone Bitart/Acetaminophen ([place] 5/325) 1 tab PO Q4H PRN PRN Reason: Moderate Pain (4-6) Last Admin: 07/29/18 22:33 Dose: 1 tab Allopurinol (Zyloprim) 200 mg PO BID [facility] Last Admin: 07/30/18 12:36 Dose: Not Given Amlodipine Besylate (Norvasc) 5 mg PO HS [facility] Last Admin: 07/29/18 21:14 Dose: 5 mg Ascorbic Acid (Vitamin C) 1,000 mg PO DAILY [facility] Last Admin: 07/30/18 12:36 Dose: Not Given Clonidine (Catapres) 0.1 mg PO BID [facility] Last Admin: 07/30/18 12:37 Dose: Not Given Clonidine (Catapres) 0.1 mg PO Q4H PRN PRN Reason: Hypertension Dextrose/Water (Dextrose 50%) 25 gm SLOW IVP PRN PRN PRN Reason: Hypoglycemia Enoxaparin Sodium (Lovenox) 40 mg SC 0900 [facility] Last Admin: 07/30/18 12:37 Dose: Not Given Finasteride (Proscar) 5 mg PO DAILY [facility] Last Admin: 07/30/18 12:38 Dose: Not Given Furosemide (Lasix) 40 mg SLOW IVP 0600,1400 [facility] Last Admin: 07/30/18 05:52 Dose: Not Given Glucagon (Glucagon) 1 mg IM PRN PRN PRN Reason: Hypoglycemia Sodium Chloride (1/2 Normal Saline) 1,000 mls @ 100 mls/hr IV .Q10H [facility] Last Admin: 07/30/18 05:51 Dose: Not Given Dextrose/Water (D5w) 1,000 mls @ 0 mls/hr IV .Q0M PRN PRN Reason: Hypoglycemia Insulin Human Lispro (Humalog) 0 units SC .MILD SLIDING SCALE PRN PRN Reason: Mild Correctional Scale Labetalol HCl (Normodyne) 100 mg PO TID [facility] Last Admin: 07/30/18 12:38 Dose: Not Given Lorazepam (Ativan) 1 mg SLOW IVP Q4H PRN PRN Reason: Anxiety/Agitation Last Admin: 07/29/18 21:10 Dose: 1 mg Losartan Potassium (Cozaar) 50 mg PO DAILY [facility] Last Admin: 07/30/18 12:38 Dose: Not Given Metronidazole (Flagyl) 500 mg PO BID [facility] Last Admin: 07/30/18 12:38 Dose: Not Given Multivitamins (Theragran) 1 tab PO DAILY [facility] Last Admin: 07/30/18 12:39 Dose: Not Given Mycophenolate Mofetil (Cellcept) 1,000 mg PO BID [facility] Last Admin: 07/30/18 12:39 Dose: Not Given Pantoprazole Sodium (Protonix) 40 mg PO DAILY [facility] Last Admin: 07/30/18 12:39 Dose: Not Given Potassium Chloride (Klor-Con) 20 meq PO BID-WM [facility] Last Admin: 07/30/18 12:36 Dose: Not Given Pravastatin Sodium (Pravachol) 5 mg PO HS [facility] Last Admin: 07/29/18 21:14 Dose: 5 mg Scopolamine (Transderm Scop) 1.5 mg TD Q3D [facility] Last Admin: 07/30/18 01:35 Dose: 1.5 mg Sodium Chloride (Flush - Normal Saline) 10 ml IVF Q12HR [facility] Last Admin: 07/30/18 12:40 Dose: Not Given Sodium Chloride (Flush - Normal Saline) 10 ml IVF PRN PRN PRN Reason: Saline Flush Tacrolimus (Prograf) 1 mg PO HS [facility] Last Admin: 07/29/18 21:15 Dose: 1 mg Tacrolimus (Prograf) 2 mg PO QAM [facility] Last Admin: 07/30/18 12:40 Dose: Not Given
--- NOTE | 2018-07-31 06:54 | DIS ---
DATE OF ADMISSION: 07/27/2018 DATE OF DISCHARGE: 07/30/2018 DISCHARGE DISPOSITION: Inpatient hospice for comfort care. PRIMARY DISCHARGE DIAGNOSES: 1. Acute metabolic encephalopathy. 2. Hypercalcemia of malignancy. 3. Hyperuricemia due to tumor lysis. 4. Thrombocytopenia. SECONDARY DISCHARGE DIAGNOSES: 1. Non-Hodgkin's lymphoma of spleen. 2. Hypertension. 3. History of heart transplant. 4. Immunosuppressive status due to immunosuppressive medication. 5. Diabetes type 2. 6. Normocytic normochromic anemia. 7. History of adenocarcinoma of liver. PRIMARY PROCEDURE/OPERATION: None. RADIOLOGICAL INVESTIGATION: None. SIGNIFICANT LABORATORY DATA: WBC 11.6, hemoglobin 11.7, platelets 100. Sodium 139, potassium 3.2, calcium 11.1, creatinine 1.0. Urinalysis normal. DISCHARGE MEDICATIONS: The patient is converted to inpatient hospice for comfort care and comfort care medication will be dictated by hospice team. CONTRAINDICATION: None. CODE STATUS: DNR. INPATIENT CONSULTANTS: Dr. Conrad Stevens, oncologist, was following while in the hospital. Palliative Care Team was consulted while in hospital. TEST RESULTS PENDING ON DISCHARGE: None. ALLERGIES: NO KNOWN DRUG ALLERGIES. DISCHARGE PLAN: The patient is discharged to inpatient hospice for comfort care. HOSPITAL COURSE: An 83-year-old male who has non-Hodgkin's lymphoma of spleen and he is getting chemotherapy. This patient was confused, altered, and he was having altered mental status. He went to Oncology Clinic where he was given Rituxan and Zometa and he was found with hypercalcemia and he was altered and that is why he was sent to hospital for admission. In the hospital, we treated him with IV fluid, and to prevent fluid overload, we also gave him Lasix. With this therapy, the patient's calcium level improved from 12.1 to 10.2. Rest of the blood tests were unremarkable. This patient overall per family member was not improving and he was declining, and that is why family member requested comfort care only. They were not interested in getting aggressive chemotherapy. Again, they were not interested in any kind of heroic measures as well as no interest in PEG tube. This patient was having fluctuating mental status. Palliative Care was consulted while in hospital and all family members agreed with inpatient hospice care for comfort care. At this point, the patient's long-term prognosis is poor. The patient has been approved for comfort care for hospice while in hospital. The patient is seen and examined at bedside today. I have spoken multiple times to the family members on the day of discharge about goal of care and answered all questions of family members multiple times. Job ID: [id number]
== END 2018-07-30 18:39 | disposition hospice, inpatient (51) | DRG 640 ==
LOC: 2NO 14:40
PROVIDERS: ADMIT Internal Medicine; ATTEND Internal Medicine
DX: E83.52 Hypercalcemia (principal); G93.41 Metabolic encephalopathy; Z94.1 Heart transplant status; F05 Delirium due to known physiological condition; C22.7 Other specified carcinomas of liver; C85.97 Non-Hodgkin lymphoma, unspecified, spleen; Z66 Do not resuscitate; H26.9 Unspecified cataract; R63.0 Anorexia; E78.00 Pure hypercholesterolemia, unspecified; K22.70 Barrett's esophagus without dysplasia; E11.9 Type 2 diabetes mellitus without complications; N40.0 Benign prostatic hyperplasia without lower urinary tract symptoms; D69.6 Thrombocytopenia, unspecified; M19.90 Unspecified osteoarthritis, unspecified site; Z79.4 Long term (current) use of insulin; Z79.899 Other long term (current) drug therapy; Z68.26 Body mass index [BMI] 26.0-26.9, adult; Z90.49 Acquired absence of other specified parts of digestive tract
CPT/HCPCS: 36415; 36416; 80048; 80053; 81001; 82248; 83615; 84100; 84550; 85025; J1200; J1610; J1650; J1940; J2060; J7507; J7517

== ENCOUNTER 2018-07-30 19:32 | Inpatient (IN) | payer OTHER ==
[2018-07-30 23:53] VITALS: BMI 25.9
[2018-07-31] MEDS ORDERED: Ondansetron PF 4 MG/2 ML Vial IVP PRN (01:26)
[2018-07-31] MEDS ORDERED: Hyoscyamine Sulfate SL 0.125 mg Tablet SL PRN (01:26)
[2018-07-31] MEDS ORDERED: Ondansetron ODT 4 MG TAB PO PRN (01:26)
[2018-07-31] MEDS: Lorazepam 2 MG/ML VIAL SLOW IVP SCH ×5 (01:44→18:36)
--- NOTE | 2018-07-31 07:10 | HP ---
CHIEF COMPLAINT: Inpatient hospice admission. HISTORY OF PRESENT ILLNESS: An 83-year-old male who was admitted to hospital on July 27, 2018, for hypercalcemia of malignancy. This patient has underlying non-Hodgkin's lymphoma and he was getting chemotherapy. He was treated with Rituxan. When he presented to Oncology Clinic, he was altered and encephalopathic. He was attributed to be due to metabolic encephalopathy. He was having hypercalcemia. He was admitted to telemetry floor. He was treated with IV fluid and Lasix. His mental status was fluctuating. He did not have any significant improvement, and per family member, he was declining. He was DNR while in the hospital and family member decided about comfort care. Palliative Care Team was following. All family members agreed with inpatient hospice care. Hospice team also evaluated this patient and they agreed that the patient is appropriate for inpatient hospice care. At this point, the patient will be admitted under [facility]. The Sound Team was instructed to follow up over weekend for this particular patient and their hospice attending will take over from Thursday. PAST MEDICAL HISTORY: History of heart transplant in 2000, immunosuppressive status due to immunosuppressive medication, history of colon polyps, Julio's esophagus, cataract, diabetes type 2, nephrolithiasis, benign enlargement of prostate, hypertension, dyslipidemia, osteoarthritis, history of adenocarcinoma of liver, history of non-Hodgkin's lymphoma of spleen. PAST SURGICAL HISTORY: Cardiac transplant, cardiac catheterization, ablation of liver cancer. PAST PSYCHIATRIC HISTORY: Reviewed and negative. FAMILY HISTORY: Coronary artery disease on paternal side. SOCIAL HISTORY: The patient has DNR. The patient's daughter is surrogate decision maker. He has no history of tobacco, alcohol, or illicit drug abuse. REVIEW OF SYSTEMS: Not reliable because of altered mental status. ALLERGIES: NO KNOWN DRUG ALLERGY. CURRENT HOME MEDICATIONS: The patient is on following medications prior to arrival to the hospital; 1. Losartan 50 mg daily. 2. Labetalol 100 mg p.o. b.i.d. 3. Tacrolimus 2 mg daily. 4. Prograf 1 mg p.o. at bedtime. 5. Pravastatin 20 mg p.o. at bedtime. 6. Omeprazole 20 mg daily. 7. CellCept 1000 mg p.o. b.i.d. 8. Multivitamin one tablet daily. 9. Insulin 15 units Lantus in the evening time. 10. Humalog as per sliding scale. 11. Lasix 40 mg b.i.d. 12. Proscar 5 mg daily. 13. Catapres 0.1 mg p.o. b.i.d. 14. Vitamin C 1000 mg p.o. daily. 15. Amlodipine 5 mg bedtime. 16. Alendronate 70 mg weekly. 17. [place] p.r.n. PHYSICAL EXAMINATION: VITAL SIGNS: Temperature 97.7, pulse 99, respiratory rate 18, saturation 96%, blood pressure 111/82, weight 171 pounds. GENERAL: The patient is awake, follows simple commands, no obvious acute distress. HEENT: Head is normocephalic, atraumatic. Eyes; pupils are round and reactive to light. Extraocular muscle intact. ENT; oropharynx within normal limits. LUNGS: Clear without any rhonchi or rales. CARDIAC: S1 and S2, regular. No murmur. No gallop. No rub. ABDOMEN: Soft and benign. EXTREMITIES: No edema. NEUROLOGIC: He is moving all 4 limbs. SIGNIFICANT LABS: Previous hospitalization record is completely reviewed. ASSESSMENT AND PLAN: 1. Inpatient hospice care for comfort care. At this point, the patient will have Levsin, lorazepam, morphine, Zofran p.r.n. basis for comfort care. We will follow over weekend and subsequently [facility] attending will take over from Thursday. 2. History of non-Hodgkin's lymphoma. 3. History of cardiac transplantation. 4. Immunosuppressive status with immunosuppressive therapy. 5. Benign enlargement of prostate. 6. Osteoarthritis and osteoporosis. 7. Gastroesophageal reflux disease. 8. Hypertension. 9. Dyslipidemia. 10. Diabetes type 2. 11. History of adenocarcinoma of liver, status post ablation. 12. Physical deconditioning. 13. Metabolic encephalopathy. CODE STATUS: DNR. Job ID: [id number] MTDD
--- NOTE | 2018-07-31 10:19 | PDOC.PN ---
- Subjective Encounter Start Date: 07/31/18 Encounter Start Time: 08:10 -: old records requested/rev pt is arousable, appears comfortable, family does not have any concerns Patient seen and examined. No overnight events - Objective Resuscitation Status - Order Detail: 07/30/18 21:37 Resuscitation Status Routine Resuscitation Status: DNAR: NO Resuscitation Discussed with: pt family MAR Reviewed: Yes Vital Signs & Weight: Vital Signs (12 hours) Temp Pulse Resp BP Pulse Ox 07/31/18 09:04 98.3 F 101 H 15 116/67 93 L Weight Weight 171 lb 5.845 oz I&O: 07/30/18 07/31/18 08/01/18 06:59 06:59 06:59 Intake Total 200 Output Total 150 Balance 50 Phys Exam - Physical Examination Constitutional: NAD HEENT: PERRLA, sclera anicteric Neck: no JVD, supple Respiratory: no wheezing, no rales, no rhonchi Cardiovascular: RRR, no significant murmur, no rub Gastrointestinal: soft, non-tender, no distention, positive bowel sounds Musculoskeletal: no edema, pulses present Neurological: moves all 4 limbs Lymphatic: no nodes Psychiatric: normal affect Skin: no rash, normal turgor Dx/Plan (1) Admission for hospice care Code(s): Z51.5 - ENCOUNTER FOR PALLIATIVE CARE Status: Acute (2) Acute metabolic encephalopathy Code(s): G93.41 - METABOLIC ENCEPHALOPATHY Status: Acute (3) Hypercalcemia of malignancy Code(s): E83.52 - HYPERCALCEMIA Status: Acute (4) Hyperuricemia Code(s): E79.0 - HYPERURICEMIA W/O SIGNS OF INFLAM ARTHRIT AND TOPHACEOUS DIS Status: Acute (5) Thrombocytopenia Code(s): D69.6 - THROMBOCYTOPENIA, UNSPECIFIED Status: Acute (6) Adenocarcinoma of liver Code(s): C22.9 - MALIG NEOPLASM OF LIVER, NOT SPECIFIED PRIMARY OR SEC Status: Chronic (7) Anemia, normocytic normochromic Code(s): D64.9 - ANEMIA, UNSPECIFIED Status: Chronic (8) H/O heart transplant Code(s): Z94.1 - HEART TRANSPLANT STATUS Status: Chronic Comment: (9) HTN (hypertension) Code(s): I10 - ESSENTIAL (PRIMARY) HYPERTENSION Status: Chronic Qualifiers: Comment: (10) Immunosuppression due to drug therapy 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 Review of Systems - Review of Systems Other: not reliable with pt due to his level of cognitive status - Medications/Allergies Allergies/Adverse Reactions: Allergies Allergy/AdvReac Type Severity Reaction Status Date / Time No Known Drug Allergies Allergy Verified 07/27/18 15:13 Medications: Current Medications Hyoscyamine Sulfate (Levsin Sl) 0.125 mg SL QIDPRN PRN PRN Reason: GI Cramps/Copious secretions Lorazepam (Ativan) 1 mg SLOW IVP Q4H [facility] Last Admin: 07/31/18 09:07 Dose: 1 mg Morphine Sulfate (Roxanol Solution) 20 mg SL Q2H PRN PRN Reason: SEVER PAIN (7-10) Ondansetron HCl (Zofran Odt) 4 mg PO Q6H PRN PRN Reason: Nausea/Vomiting Ondansetron HCl (Zofran) 4 mg IVP Q6H PRN PRN Reason: Nausea/Vomiting
[2018-07-31] MEDS ORDERED: Lorazepam 1 MG TAB PO SCH ×2 (18:00→22:00)
[2018-07-31] MEDS: Lorazepam 1 MG TAB PO SCH (22:11)
[2018-08-01] MEDS: Lorazepam 1 MG TAB PO SCH ×6 (01:28→20:52)
[2018-08-01] MEDS: Morphine 10 MG/0.5 ML ORAL SYRINGE SL PRN ×2 (03:21→20:53)
--- NOTE | 2018-08-01 09:38 | PDOC.PN ---
- Subjective Encounter Start Date: 08/01/18 Encounter Start Time: 07:00 last night pt was not able to sleep well and he was restless, given ativan and after that now he is resting Patient seen and examined. all family members are bedside - Objective Resuscitation Status - Order Detail: 07/30/18 21:37 Resuscitation Status Routine Resuscitation Status: DNAR: NO Resuscitation Discussed with: pt family MAR Reviewed: Yes Vital Signs & Weight: Vital Signs (12 hours) Temp Pulse Resp BP Pulse Ox 08/01/18 08:10 97.6 F 100 16 126/83 94 L Weight Weight 171 lb 5.845 oz I&O: 07/31/18 08/01/18 08/02/18 06:59 06:59 06:59 Intake Total 200 140 25 Output Total 150 300 Balance 50 -160 25 Phys Exam - Physical Examination Constitutional: NAD resting HEENT: PERRLA, sclera anicteric Neck: no JVD, supple Respiratory: no wheezing, no rales, no rhonchi Cardiovascular: RRR, no significant murmur, no rub Gastrointestinal: soft, no distention, positive bowel sounds Musculoskeletal: no edema, pulses present Lymphatic: no nodes Skin: no rash, normal turgor Dx/Plan (1) Admission for hospice care Code(s): Z51.5 - ENCOUNTER FOR PALLIATIVE CARE Status: Acute (2) Acute metabolic encephalopathy Code(s): G93.41 - METABOLIC ENCEPHALOPATHY Status: Acute (3) Hypercalcemia of malignancy Code(s): E83.52 - HYPERCALCEMIA Status: Acute (4) Hyperuricemia Code(s): E79.0 - HYPERURICEMIA W/O SIGNS OF INFLAM ARTHRIT AND TOPHACEOUS DIS Status: Acute (5) Thrombocytopenia Code(s): D69.6 - THROMBOCYTOPENIA, UNSPECIFIED Status: Acute (6) Adenocarcinoma of liver Code(s): C22.9 - MALIG NEOPLASM OF LIVER, NOT SPECIFIED PRIMARY OR SEC Status: Chronic (7) Anemia, normocytic normochromic Code(s): D64.9 - ANEMIA, UNSPECIFIED Status: Chronic (8) H/O heart transplant Code(s): Z94.1 - HEART TRANSPLANT STATUS Status: Chronic Comment: (9) HTN (hypertension) Code(s): I10 - ESSENTIAL (PRIMARY) HYPERTENSION Status: Chronic Qualifiers: Comment: (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 Review of Systems - Review of Systems Other: unable to review as pt is sleepy - Medications/Allergies Allergies/Adverse Reactions: Allergies Allergy/AdvReac Type Severity Reaction Status Date / Time No Known Drug Allergies Allergy Verified 07/27/18 15:13 Medications: Current Medications Hyoscyamine Sulfate (Levsin Sl) 0.125 mg SL QIDPRN PRN PRN Reason: GI Cramps/Copious secretions Lorazepam (Ativan) 1 mg PO Q4HR ELENA Last Admin: 08/01/18 08:55 Dose: 1 mg Morphine Sulfate (Roxanol Solution) 20 mg SL Q2H PRN PRN Reason: SEVER PAIN (7-10) Last Admin: 08/01/18 03:21 Dose: 20 mg Ondansetron HCl (Zofran Odt) 4 mg PO Q6H PRN PRN Reason: Nausea/Vomiting Ondansetron HCl (Zofran) 4 mg IVP Q6H PRN PRN Reason: Nausea/Vomiting
[2018-08-02] MEDS: Lorazepam 1 MG TAB PO SCH ×5 (01:16→18:22)
[2018-08-02] MEDS: Morphine 10 MG/0.5 ML ORAL SYRINGE SL PRN ×3 (01:20→23:29)
[2018-08-02 19:54] VITALS: BP 92/59; TEMP 98.6
[2018-08-02] MEDS: Lorazepam 1 MG TAB PO PRN (23:29)
[2018-08-03] MEDS: Lorazepam 1 MG TAB PO PRN ×2 (02:27→04:44)
[2018-08-03] MEDS: Morphine 10 MG/0.5 ML ORAL SYRINGE SL PRN ×2 (02:28→04:44)
== END 2018-08-03 07:00 | disposition expired | DRG 951 ==
LOC: 2NO 19:32 → ONC 07-31 11:37
PROVIDERS: ADMIT Internal Medicine; ATTEND Internal Medicine
DX: Z51.5 Encounter for palliative care (principal); G93.41 Metabolic encephalopathy; Z94.1 Heart transplant status; C85.97 Non-Hodgkin lymphoma, unspecified, spleen; Z66 Do not resuscitate; E11.9 Type 2 diabetes mellitus without complications; K22.70 Barrett's esophagus without dysplasia; N40.0 Benign prostatic hyperplasia without lower urinary tract symptoms; I10 Essential (primary) hypertension; E78.5 Hyperlipidemia, unspecified; M19.90 Unspecified osteoarthritis, unspecified site; M81.0 Age-related osteoporosis without current pathological fracture; E83.52 Hypercalcemia; E79.0 Hyperuricemia without signs of inflammatory arthritis and tophaceous disease; D69.6 Thrombocytopenia, unspecified; D64.9 Anemia, unspecified; Z79.4 Long term (current) use of insulin; Z85.05 Personal history of malignant neoplasm of liver; Z79.899 Other long term (current) drug therapy
CPT/HCPCS: J2060